=== PATIENT | female | born 1955 | race Caucasian/White ===

== ENCOUNTER → 2019-04-27 | Day surgery (SDC) | payer MEDICARE ==
[~2019-04-27] MED LIST: CARAFATE1 GM/10 ML PO; DOCUSATE SODIU100 MG PO; FENTANYL CITRATE/PF 100MCG/2 ML INJ ONE; FENTANYL1 EAC1 TOP; FLONASE; FLUTICASONE PRO60 ML; LIDOCAINE HCL 2% LOCAL INJ 5 ML SDV VIAL INJ ONE; LISINOPRIL10 MG PO; LYRICA75 MG; MIDAZOLAM HCL 2 MG/2 ML VIAL ONE; NORCO 10-325 T1 EACH; PROPOFOL IV EMULSION 10 MG/ML 20 ML VIAL ONE; TRAZODONE HCL50 MG PO; TRELEGY ELLIPTA; ZOFRAN8 MG; ZOLPIDEM
--- OUTSIDE RECORDS SUMMARY | 2019-04-27 11:29 | XMS REPORT ---
Author Author [facility] Address Unknown Phone Unavailable Care Team Providers Care Preparator Name Role Phone Celeste MULLEN Unavailable Unavailable Problems This patient has no known problems. Allergies, Adverse Reactions, Alerts This patient has no known allergies or adverse reactions. Medications This patient has no known medications. Results Test Description Test Time Test Comments Text Results Atomic Results Result Comments RIBS UNILAT W/CXR [facility] [address] [address] Patient Name: MARIA R LOAIZA MR #: [id number] : 1955 Age/Sex: 61/F Req #: [id number] [facility] Physician: Ordered by: TRINO MULLEN MD Report #: [id number] Location: [facility] Room/Bed: Procedure: DX/RIBS UNILAT W/CXR Exam Date: 04/16/17 Exam Time: 1645 REPORT STATUS: Signed PROCEDURE: X-RAY UNILATERAL RIBS WITH CHEST X-RAY COMPARISON: [facility], DX, THORACIC SPINE AP T LA, 04/11/2017, 17:39. INDICATIONS: FALL, RIGHT SIDE RIB PAIN FINDINGS: BONES: Displaced fracture of the posterior right sixth rib. SOFT TISSUES: Negative. OTHER: No pneumothorax. CONCLUSION: Displaced fracture of the posterior right sixth rib. No pneumothorax. Mason Pittman M.D. Dictated by: Mason Pittman M.D. on 04/16/2017 at 18:14 Electronically approved by: Mason Pittman M.D. on 04/16/2017 at 18:14 Dictated By: JAKE PITTMAN MD, MD 13 Transcribed By: ASHKAN on 04/16/171813 COPY TO: TRINO MULLEN MD SACRUM X-RAY [place] [address] Patient Name: MARIA R LOAIZA MR #: [id number] : 1955 Age/Sex: 61/F Req #: [id number] Adm Physician: Ordered by: TRINO MULLEN MD Report #: [id number] Location: [facility] Room/Bed: Procedure: [id number] DX/SACRUM X-RAY Exam Date: 04/11/17 Exam Time: 1739 REPORT STATUS: Signed PROCEDURE: SACRUM X-RAY TECHNIQUE: AP and lateral INDICATION: Back pain. COMPARISON: None. FINDINGS: Unremarkable sacrum. No fractures or dislocations. Unremarkable bilateral SI joints. Grade 1 anterolisthesis of L4 on L5 secondary to mild facet arthropathy. Moderate disc space narrowing at L5-S1 with moderate L5-S1 facet arthrosis. CONCLUSION: Unremarkable sacrum. Dictated by: Raúl Peña M.D. on 04/11/2017 at 18:35 Electronically approved by: Raúl Peña M.D. on 04/11/2017 at 18:35 Dictated By: RAÚL PEÑA MD 1835 Transcribed By: ASHKAN on 04/11/171834 COPY TO: TRINO MULLEN MD SP LUMBAR, COMPLETE MIN 4VW [place] [address] Patient Name: MARIA R LOAIZA MR #: [id number] : 1955 Age/Sex: 61/F Req #: [id number] Adm Physician: Ordered by: TRINO MULLEN MD Report #: [id number] Location: [facility] Room/Bed: Procedure: [id number] DX/SP LUMBAR, COMPLETE MIN 4VW Exam Date: 04/11/17 Exam Time: 1739 REPORT STATUS: Signed PROCEDURE: L-SPINE COMPLETE COMPARISON: None. INDICATIONS: LOWER BACK PAIN FINDINGS: There are 5 lumbar-type vertebral bodies. The vertebral bodies are well-aligned. Trace grade 1 anterolisthesis of L4 on L5 secondary to mild facet arthropathy. Moderate to severe facet arthropathy at L5-S1. There are no fractures, lytic or blastic lesions. Moderate disc space narrowing at L5-S1. Schmorl's node defect on the superior endplate of L3. The sacroiliac joints are unremarkable. Severe atherosclerotic calcifications. Partially visualized intertrochanteric screws in the left femur. CONCLUSION: Moderate degenerative changes in the lower lumbar spine with grade 1 anterolisthesis of L4 on L5 secondary to facet arthropathy and moderate disc space narrowing at L5-S1. Dictated by: Raúl Peña M.D. on 04/11/2017 at 18:34 Electronically approved by: Raúl Peña M.D. on 04/11/2017 at 18:34 Dictated By: RAÚL PEÑA MD 33 Transcribed By: ASHKAN on 04/11/171833 COPY TO: TRINO MULLEN MD THORACIC SPINE AP LA [place] [address] Patient Name: MARIA R LOAIZA MR #: [id number] : 1955 Age/Sex: 61/F Req #: [id number] Adm Physician: Ordered by: TRINO MULLEN MD Report #: [id number] Location: [facility] Room/Bed: Procedure: [id number] DX/THORACIC SPINE AP LA Exam Date: 04/11/17 Exam Time: 1739 REPORT STATUS: Signed PROCEDURE: X-RAY THORACIC SPINE, TWO VIEWS COMPARISON: None. INDICATIONS: BACK PAIN FINDINGS: No fractures or dislocations are seen of the thoracic spine. Vertebral body heights and disc spaces are maintained. Mild anterior disc osteophytes. CONCLUSION: Unremarkable thoracic spine. Dictated by: Raúl Peña M.D. on 04/11/2017 at 18:30 Electronically approved by: Raúl Peña M.D. on 04/11/2017 at 18:30 Dictated By: RAÚL PEÑA MD 29 Transcribed By: ASHKAN on 04/11/171829 COPY TO: TRINO MULLEN MD
[2019-04-27 14:53] VITALS: BP 137/88
== END | disposition home or self-care (01) ==
LOC: OR 11:26
PROVIDERS: ATTEND Internal Medicine Gastroenterology
DX: K29.50 Unspecified chronic gastritis without bleeding (principal); K22.2 Esophageal obstruction; K29.80 Duodenitis without bleeding; K44.9 Diaphragmatic hernia without obstruction or gangrene; B17.10 Acute hepatitis C without hepatic coma; Z71.3 Dietary counseling and surveillance; E66.9 Obesity, unspecified; G47.30 Sleep apnea, unspecified; I10 Essential (primary) hypertension; F41.9 Anxiety disorder, unspecified; F17.210 Nicotine dependence, cigarettes, uncomplicated; Z88.6 Allergy status to analgesic agent; Z68.34 Body mass index [BMI] 34.0-34.9, adult
CPT/HCPCS: 43239; 88305; 88312; 93005; J2001; J2250; J2704; J3010

== ENCOUNTER 2020-04-08 19:32 | Inpatient (IN) | payer MEDICARE, OTHER ==
[~2020-04-08] VITALS: Ht 170.2 cm; Wt 85.5 kg
[~2020-04-08 19:32] MED LIST changes: -FENTANYL CITRATE/PF 100MCG/2 ML INJ ONE; -LIDOCAINE HCL 2% LOCAL INJ 5 ML SDV VIAL INJ ONE; -MIDAZOLAM HCL 2 MG/2 ML VIAL ONE; -NORCO 10-325 T1 EACH; +NORCO 10-325 T1 EACH PO; -PROPOFOL IV EMULSION 10 MG/ML 20 ML VIAL ONE; -ZOLPIDEM; +ZOLPIDEM PO
--- NOTE | 2020-04-08 19:39 | Emergency Department Note ---
History of Present Illnes History of Present Illness History of Present Illness This is a 64 year old female presents the ED after being discharged from [facility] for blood clot in the abdomen. Patient seen at bedside ill appearing. Historian: Patient, Family Member Onset (how long ago): day(s) Radiation: Reports abdomen Severity: moderate Onset quality: gradual Duration (how long): day(s) (4) Timing of current episode: constant Progression: worsening Context: Reports recent illness, Reports recent immobilization Exacerbating factors: eating Associated symptoms: Reports fever/chills, Reports malaise, Reports nausea/vomiting Previous service: tests performed, re-evaluation Past Medical/Family History Physician Review I have reviewed the patient's past medical and family history. Any updates have been documented here. Past Medical History Recent Fever: No Clinical Suspicion of Infectio: Yes New/Unexplained Change in Ment: No Other Medical History: CHRONIC BACK PAIN, FOOT, ANXIETY, DEPRESSION, Other Surgery: C-SECTIONS X2 SKIN GRAFTS Social History Smoking Cessation: Never Smoker Alcohol Use: None Any Illegal Drug Use: No Other Last Tetanus: OOD Review of Systems Review of Systems Constitutional: Reports no symptoms EENTM: Reports no symptoms Cardiovascular: Reports no symptoms Respiratory: Reports no symptoms Gastrointestinal: Reports abdominal pain, Reports diarrhea Genitourinary: Reports no symptoms Musculoskeletal: Reports no symptoms Integumentary: Reports no symptoms Neurological: Reports no symptoms Psychological: Reports no symptoms Endocrine: Reports no symptoms Hematological/Lymphatic: Reports no symptoms Physical Exam Related Data Allergies: Coded Allergies: aspirin (Verified Allergy, Intermediate, VOMITING, 04/19/17) oxycodone (Verified Allergy, Intermediate, VOMITING, 04/19/17) pentazocine (Verified Allergy, Intermediate, VOMITING, 04/19/17) Triage Vital Signs Vital Signs Date Time Temp Pulse Resp B/P (MAP) Pulse Ox O2 Delivery O2 Flow Rate FiO2 04/08/20 20:00 98.2 86 18 154/85 98 Room Air Vital signs reviewed: Yes Physical Exam CONSTITUTIONAL Constitutional: Present morbidly obese, Present diaphoretic, Present ill appearing HENT HENT: Present normocephalic, Present atraumatic, Present oropharynx clear/moist, Present nose normal HENT L/R: Present left ext ear normal, Present right ext ear normal EYES Eyes: Reports PERRL, Reports conjunctivae normal NECK Neck: Present ROM normal PULMONARY Pulmonary: Present effort normal, Present breath sounds normal CARDIOVASCULAR Cardiovascular: Present regular rhythm, Present heart sounds normal, Present capillary refill normal, Present normal rate GASTROINTESTINAL Abdominal: Present soft, Present distension, Present tender GENITOURINARY Genitourinary: Present exam deferred SKIN Skin: Present warm, Present dry MUSCULOSKELETAL Musculoskeletal: Present ROM normal NEUROLOGICAL Neurological: Present alert, Present oriented x 3, Present no gross motor or sensory deficits PSYCHOLOGICAL Psychological: Present mood/affect normal, Present judgement normal Results Laboratory Lab results reviewed: Yes Laboratory comments Laboratory Tests Test 04/08/20 20:40 04/08/20 20:08 White Blood Count 18.33 x10e3/uL (4.8-10.8) Red Blood Count 5.01 x10e6/uL (3.6-5.1) Hemoglobin 14.1 g/dL (12.0-16.0) Hematocrit 41.4 % (34.2-44.1) Mean Corpuscular Volume 82.6 fL (81-99) Mean Corpuscular Hemoglobin 28.1 pg (28-32) Mean Corpuscular Hemoglobin Concent 34.1 g/dL (31-35) Red Cell Distribution Width 13.4 % (11.7-14.4) Platelet Count 306 x10e3/uL (140-360) Neutrophils (%) (Auto) 74.2 % (38.7-80.0) Lymphocytes (%) (Auto) 15.5 % (18.0-39.1) Monocytes (%) (Auto) 8.5 % (4.4-11.3) Eosinophils (%) (Auto) 0.3 % (0.0-6.0) Basophils (%) (Auto) 0.2 % (0.0-1.0) Neutrophils # (Auto) 13.6 (2.1-6.9) Lymphocytes # (Auto) 2.8 (1.0-3.2) Monocytes # (Auto) 1.6 (0.2-0.8) Eosinophils # (Auto) 0.1 (0.0-0.4) Basophils # (Auto) 0.0 (0.0-0.1) Absolute Immature Granulocyte (auto 0.24 x10e3/uL (0-0.1) Sodium Level 136 mmol/L (136-145) Potassium Level 3.4 mmol/L (3.5-5.1) Chloride Level 100 mmol/L (98-107) Carbon Dioxide Level 23 mmol/L (22-29) Anion Gap 16.4 mmol/L (8-16) Blood Urea Nitrogen 19 mg/dL (7-26) Creatinine 0.90 mg/dL (0.57-1.11) Estimat Glomerular Filtration Rate > 60 ML/MIN (60-) BUN/Creatinine Ratio 21 (6-25) Glucose Level 107 mg/dL (74-118) Calcium Level 8.2 mg/dL (8.4-10.2) Total Bilirubin 0.6 mg/dL (0.2-1.2) Aspartate Amino Transf (AST/SGOT) 18 IU/L (5-34) Alanine Aminotransferase (ALT/SGPT) 17 IU/L (0-55) Alkaline Phosphatase 88 IU/L (40-150) Total Protein 7.1 g/dL (6.5-8.1) Albumin 3.9 g/dL (3.5-5.0) Globulin 3.2 g/dL (2.3-3.5) Albumin/Globulin Ratio 1.2 (0.8-2.0) Urine Color Yellow (YELLOW) Urine Clarity Sl cloudy (CLEAR) Urine pH 6 (5 - 7) Urine Specific [place] 1.010 (1.010-1.025) Urine Protein Negative (NEGATIVE) Urine Glucose (UA) Negative (NEGATIVE) Urine Ketones Negative (NEGATIVE) Urine Blood Trace (NEGATIVE) Urine Nitrite Negative (NEGATIVE) Urine Bilirubin Negative (NEGATIVE) Urine Urobilinogen 0.2 mg/dL (0.2 - 1) Urine Leukocyte Esterase Trace (NEGATIVE) Urine RBC 0-5 /HPF (0-5) Urine WBC 0-5 /HPF (0-5) Urine Epithelial Cells Moderate /LPF (NONE) Urine Bacteria Moderate /HPF (NONE) Urine Opiates Screen Positive (NEGATIVE) Urine Methadone Screen Negative (NEGATIVE) Urine Barbiturates Screen Negative (NEGATIVE) Urine Phencyclidine Screen Negative (NEGATIVE) Urine Amphetamines Screen Negative (NEGATIVE) Urine Methamphetamines Screen Negative (NEGATIVE) Urine Benzodiazepines Screen Negative (NEGATIVE) Urine Cocaine Screen Negative (NEGATIVE) Urine Cannabinoids Screen Negative (NEGATIVE) Imaging Imaging results reviewed: Yes Impressions [facility] [address] [id number] Patient Name: MARIA R LOAIZA MR #: [id number] : 1955 Age/Sex: 64/F [facility] #: [id number] Req #: [id number] [facility] Physician: Ordered by: MARILIA GOMEZ DO Report #: [id number] Location: Room/Bed: Procedure: CT/CTA ABD/PELVIS Exam Date: 04/08/20 Exam Time: 2148 REPORT STATUS: Signed EXAM: CTA of the Abdominal Aorta and Pelvic Arteries WITH Contrast INDICATION: ^abd pain ^[id number] ^2148 COMPARISON: None. TECHNIQUE: Multi-detector CT technology was employed. CTA of the abdomen and pelvis was performed after the administration of IV contrast. IV CONTRAST: 100 mL of Isovue-370 ORAL CONTRAST: None COMPLICATIONS: None RADIATION DOSE: Total DLP: 1593.96 mGy*cm Estimated effective dose: (DLP x 0.015 x size factor) mSv CTDIvol has been reviewed. It is below the limits set by the Radiation Protocol Committee (RPC). For optimization of anatomic evaluation, multiplanar reconstruction, maximum intensity projections, and advanced 3-D off-line postprocessing were performed on a dedicated stand-alone workstation under the direct supervision of the interpreting physician. FINDINGS: Potential study limitations: None. The abdominal aorta is normal in course, caliber, and contour. There is no acute aortic pathology. No abdominal aortic aneurysm. Normal abdominal aortic measurements. Aortic plaques: Moderate. The celiac axis, SMA, and MIA are patent. There are single renal arteries bilaterally, both of which appear patent. However, there is moderate to severe calcification at the ostium of the left renal artery. The pelvic arteries are normal in caliber and contour. There are moderate to severe atherosclerotic changes of the pelvic arteries. LOWER CHEST: Posterior left base cyst/pneumatoceles. Punctate subpleural left base calcified granuloma.. ABDOMEN: Cholecystectomy. Mild intrahepatic biliary dilatation. Common bile duct is distended up to 1.8 cm. Hepatomegaly. No hepatic mass. Splenomegaly. Pancreatic ductal dilatation, measuring up to 9 mm proximally. Mild pancreatic atrophy. Adrenal glands are unremarkable. No hydronephrosis. No renal mass. Bowel loops are unremarkable. No evidence of bowel obstruction. Contrast from prior study is seen within colon. Wall thickening and change in caliber of colon at splenic flexure (series 6, image 32). Appendix is not visualized. There is no significant retroperitoneal adenopathy. Few nonspecific retroperitoneal lymph nodes measuring up to 1 cm (series 6, image 72). 1.2 cm pericaval lymph node No free fluid or free air within the abdomen or pelvis. BONES: Prior left femoral head pin fixation. Left iliac sclerotic focus (series 6, image 125). Mild age-indeterminate healthy and L4 superior to compression deformity, likely degenerative. Degenerative changes, most notable at L5-S1. Small bowel containing ventral hernia. IMPRESSION: 1. No acute abdominal aortic pathology. Moderate aortoiliac atherosclerotic disease. 2. Biliary dilatation, greater than expected post cholecystectomy reservoir effect. There is also pancreatic ductal dilatation. Ampullary lesion cannot be excluded. Recommend GI consult and if indicated correlation with ERCP or endoscopic examination. 3. Mild wall thickening and abrupt change caliber of colon in splenic flexure. Underlying colonic lesion cannot be excluded. 4. Few indeterminate prominent retroperitoneal lymph nodes. Attention on follow-up examination. 5. Left iliac sclerotic focus, could present a bone island. This can be confirmed with bone scan. Signed by: Dr. Lisandro Whalen MD on 04/08/2020 11:02 PM Dictated By: LISANDRO WHALEN MD 01 Transcribed By: NELY on 04/08/202301 COPY TO: MARILIA GOMEZ DO~ Assessment & Plan Medical Decision Making MDM diff dx : choledochelithiasis, cholangitis, uti, colitis, mesenteric ischemia Assessment & Plan Final Impression: (1) Abdominal pain (2) UTI (urinary tract infection) Depart Disposition: ADMITTED Home Meds Reported Medications Tizanidine Hcl (TIZANIDINE HCL) 4 Mg Tablet, 4 MG PO Q8H 9/6/20 Fluticasone/Salmeterol (ADVAIR HFA 115-21 MCG INHALER) Unknown Strength Hfa.aer.ad 04/09/20 Lisinopril (LISINOPRIL) 10 Mg Tablet, 10 MG PO DAILY, #30 TAB 04/27/19 [Zopidem] No Conflict Check, 5 MG PO HS PRN for INSOMNIA 04/27/19 Trazodone Hcl (TRAZODONE HCL) 50 Mg Tablet, 50 MG PO DAILY PRN for INSOMNIA, #30 TAB 04/27/19 Sucralfate (CARAFATE) 1 Gm/10 Ml Oral.susp, 1 GM PO UD, ML 04/27/19 [Trelegy Ellipta] Unknown Strength No Conflict Check 04/27/19 [Flonase] Unknown Strength No Conflict Check 04/27/19 Hydrocodone Bit/Acetaminophen (NORCO 10-325 TABLET) 1 Each Tablet, 1 TAB PO Q6H PRN for MODERATE PAIN (4-6) 04/27/19 Fentanyl (FENTANYL) 1 Each Patch.td72, 50 MCG TOP Q72H 04/27/19 Pregabalin (LYRICA) 75 Mg Cap, 100 MG DAILY, #30 CAP 04/27/19 Discontinued Reported Medications Ondansetron Hcl (ZOFRAN) 8 Mg Tablet, 4 04/27/19 Docusate Sodium (DOCUSATE SODIUM) 100 Mg Capsule, 100 MG PO, CAP 04/27/19 Fluticasone Propionate (FLUTICASONE PROPIONATE) 60 Ml Lotion 04/27/19 Lisinopril (LISINOPRIL) 10 Mg Tablet, 40 MG PO DAILY, #30 TAB 04/27/19 MARILIA GOMEZ DO Apr 08, 2020 19:38
[2020-04-08] MEDS ORDERED: SODIUM CHLORIDE 0.9% 1000ML 1,000 ML IV STA (19:59)
[2020-04-08] MEDS ORDERED: ONDANSETRON HCL INJ 2MG/ML 2ML 2 MG/ML VIAL IV STA (19:59)
[2020-04-08] MEDS ORDERED: MORPHINE SULFATE INJ 4 MG/ML INJ 1ML IV PRN (20:00)
--- OUTSIDE RECORDS SUMMARY | 2020-04-08 20:26 | XMS REPORT | Continuity of Care Document ---
Author Author [facility] t Organization [facility] Address [address] [place] [address] Phone Unavailable Care Team Providers Care Customer Acquisition Specialist Name Role Phone Celeste JERONIMO TRINO Attphys Unavailable Payers Payer Name Policy Type Policy Number Effective Date Expiration Date S ource Problems This patient has no known problems. Allergies, Adverse Reactions, Alerts Allergy Name Allergy Type Status Severity Reaction(s) Onset Date Inacti ve Date Treating Clinician Comments Source pentazocine DA Active U 2015-11-29 00:00:00 [facility] Medications This patient has no known medications. Procedures This patient has no known procedures. Results Test Description Test Time Test Comments Results Result Comments Source - CT ABD PELVIS W WO CONT 2020-04-08 16:59:00 Name: MARIA R LOAIZA [facility] : 1955 Age/S: 64 / F [address] [facility] Unit #: [id number] Loc: [place] [address] Phys: Morelia Trujillo MD Acct: [id number] Dis Date: Status: ADM IN PHONE #: [phone] Exam Date: 04/08/2020 1630 FAX #: [phone] Reason: Abdominal pain and diarrhea EXAMS: CPT CODE: [id number] CT ABD PELVIS W WO CONT 23097 REASON FOR EXAM: Abdominal pain and diarrhea EXAM ORDER DATE: 04/08/2020 11:54 AM Ordering: Morelia Trujillo MD Attending:Maryuri Esquivel MD Location:[facility] PROCEDURE: - CT ABD PELVIS W WO CONT COMPARISON: FINDINGS: CT images of the abdomen and pelvis were obtained 1st without and follow with IV and without oral contrast at 5mm. Dose modulation, iterative reconstruction, and/or weight based adjustment of the MA/KV was utilized to reduce the radiation dose to as low as reasonably achievable. Intravenous contrast: 100cc of Omnipaque 370. The liver, spleen, pancreas are grossly within normal limits. The patient is status post cholecystectomy The kidneys are within normal limits. The urinary bladder is unremarkable. The small bowel, and stomach are within normal limits without evidence of obstruction. The appendix was not seen No evidence of free air or free fluid. The uterus is unremarkable. IMPRESSION: Possible small thrombus versus artifact in the middle third segment of the SMA. Nonspecific minimal thickening of the transverse colonic wall near the splenic flexure. Recommend additional correlation with CT angiogram of the mesenteric artery to rule out SMA occlusion. at 9361 Reported and signed by: Wes Marina M.D. PAGE 1 Signed Report (CONTINUED) Name: MARIA R LOAIZA [facility] : 1955 Age/S: 64 / F [address] [facility] Unit #: [id number] Loc: [place] [address] Phys: Morelia Trujillo MD Acct: [id number] Dis Date: Status: ADM IN PHONE #: [phone] Exam Date: 04/08/2020 1630 FAX #: [phone] Reason: Abdominal pain and diarrhea EXAMS: CPT CODE: [id number] CT ABD PELVIS W WO CONT 34497 <Continued> CC: Morelia Trujillo MD; Félix Jeronimo MD; Maryuri Esquivel MD Technologist:July KLINE(R); SAMARA Gomez CTDI: DLP: Trnscb Date/Time: 04/08/2020 (165) [email or web address] Orig Print D/T: S: 04/08/2020 (3537) PAGE 2 Signed Report COVID 19 INHOUSE AG 2020-04-08 02:40:00 Test Item COVID 19 INHOUSE AG (test code = [id number]) NEGATIVE - XR CHEST 1 [id number] 00:31:00 Name: MARIA R LOAIZA [facility] : 1955 Age/S:64 /F [address] [facility] Unit#:[id number] Loc: [place] [address] Phys: June Hearn MD Dis Date: PHONE #: [phone] Status: PRE ER FAX #: [phone] Exam Date: 04/08/2020 Reason: CHEST PAIN EXAMS: CPT CODE: [id number] XR CHEST 1 V 22680 AFTER HOURS SERVICE ON: 04/08/2020 12:30 AM AP Portable Chest Location Code M12 HISTORY: CHEST PAIN FINDINGS: There are no infiltrates. There are no pleural effusions. There is no pneumothorax. Cardiac silhouette and mediastinum appear within normal limits. IMPRESSION: No active pulmonary findings. at 0031 Reported and signed by: Jens Oneil M.D. CC: Félix Jeronimo MD Technologist: DEAN AGUSTIN RT(R),RDMS,CT Trnscrpt Data: 04/08/2020 (003) [email or web address] Orig Print D/T: S: 04/08/2020 (0034) PAGE 1 Signed Report URINALYSIS [id number] 00:08:00* Test Item Value Reference Range Interpretation Comments UA COLOR (test code = COLU) YELLOW YELLOW UA APPEARANCE (test code = APPU) HAZY CLEAR A UA GLUCOSE DIPSTICK (test code = DGLUU) norm mg/dL NEGATIVE UA BILIRUBIN DIPSTICK (test code = BILU) NEGATIVE mg/dL NEGATIVE UA KETONE DIPSTICK (test code = KETU) 5 (Trace) mg/dL NEGATIVE A UA SPECIFIC GRAVITY (test code = SGU) 1.015 1.001-1.035 UA BLOOD DIPSTICK (test code = THELMA) 10 (Trace) Babar/uL NEGATIVE A UA PH DIPSTICK (test code = MELISSA) 6.0 5.0-8.0 UA PROTEIN DIPSTICK (test code = PROU) 30 (1+) mg/dL Neg-15 A UA UROBILINIOGEN DIPSTICK (test code = URO) 1 mg/dL 0.0-0.2 A UA NITRITE DIPSTICK (test code = SHALA) NEGATIVE NEGATIVE UA LEUKOCYTE ESTERASE DIPSTICK (test code = LEUU) 100 Katarina/uL (1+) u L NEGATIVE A UA WBC (test code = WBCU) 6-10 per HPF 0-5 A UA RBC (test code = RBCU) 0-3 per HPF 0-5 UA EPITHELIAL CELLS (test code = EPIU) Few (2-5/hpf) per HPF Few UA BACTERIA (test code = BACU) LOADED per HPF NONE A Urine Source? Clean CatchDRUGS OF ABUSE SCREEN [id number] 00:08:00* Test Item Value Reference Range Interpretation Comments URN COCAINE (test code = COCAURN) NEGATIVE NEGATIVE URN CANNABINOIDS (test code = CANNABURN) NEGATIVE NEGATIVE URN AMPHETAMINE (test code = AMPHETURN) NEGATIVE NEGATIVE URN BARBITURATE (test code = BARBITURN) NEGATIVE NEGATIVE URN BENZODIAZEPINE (test code = BENZOURN) NEGATIVE NEGATIVE URN OPIATES (test code = OPIATURN) NEGATIVE NEGATIVE URN PHENCYCLIDINE (PCP) (test code = PHENCURN) NEGATIVE NEGATIV E Urine Source? Clean CatchURINALYSIS [id number] 00:00:00* Test Item Value Reference Range Interpretation Comments UA COLOR (test code = COLU) YELLOW YELLOW UA APPEARANCE (test code = APPU) HAZY CLEAR A UA GLUCOSE DIPSTICK (test code = DGLUU) norm mg/dL NEGATIVE UA BILIRUBIN DIPSTICK (test code = BILU) NEGATIVE mg/dL NEGATIVE UA KETONE DIPSTICK (test code = KETU) 5 (Trace) mg/dL NEGATIVE A UA SPECIFIC GRAVITY (test code = SGU) 1.015 1.001-1.035 UA BLOOD DIPSTICK (test code = THELMA) 10 (Trace) Babar/uL NEGATIVE A UA PH DIPSTICK (test code = MELISSA) 6.0 5.0-8.0 UA PROTEIN DIPSTICK (test code = PROU) 30 (1+) mg/dL Neg-15 A UA UROBILINIOGEN DIPSTICK (test code = URO) 1 mg/dL 0.0-0.2 A UA NITRITE DIPSTICK (test code = SHALA) NEGATIVE NEGATIVE UA LEUKOCYTE ESTERASE DIPSTICK (test code = LEUU) 100 Katarina/uL (1+) u L NEGATIVE A UA WBC (test code = WBCU) 6-10 per HPF 0-5 A UA RBC (test code = RBCU) 0-3 per HPF 0-5 UA EPITHELIAL CELLS (test code = EPIU) Few (2-5/hpf) per HPF Few UA BACTERIA (test code = BACU) LOADED per HPF NONE A Urine Source? Clean CatchDRUGS OF ABUSE SCREEN [id number] 00:00:00* Test Item Value Reference Range Interpretation Comments URN COCAINE (test code = COCAURN) NEGATIVE URN CANNABINOIDS (test code = CANNABURN) NEGATIVE URN AMPHETAMINE (test code = AMPHETURN) NEGATIVE URN BARBITURATE (test code = BARBITURN) NEGATIVE URN BENZODIAZEPINE (test code = BENZOURN) NEGATIVE URN OPIATES (test code = OPIATURN) NEGATIVE URN PHENCYCLIDINE (PCP) (test code = PHENCURN) NEGATIV E Urine Source? Clean CatchURINALYSIS [id number] 23:57:00* Test Item Value Reference Range Interpretation Comments UA COLOR (test code = COLU) YELLOW YELLOW UA APPEARANCE (test code = APPU) HAZY CLEAR A UA GLUCOSE DIPSTICK (test code = DGLUU) norm mg/dL NEGATIVE UA BILIRUBIN DIPSTICK (test code = BILU) NEGATIVE mg/dL NEGATIVE UA KETONE DIPSTICK (test code = KETU) 5 (Trace) mg/dL NEGATIVE A UA SPECIFIC GRAVITY (test code = SGU) 1.015 1.001-1.035 UA BLOOD DIPSTICK (test code = THELMA) 10 (Trace) Babar/uL NEGATIVE A UA PH DIPSTICK (test code = MELISSA) 6.0 5.0-8.0 UA PROTEIN DIPSTICK (test code = PROU) 30 (1+) mg/dL Neg-15 A UA UROBILINIOGEN DIPSTICK (test code = URO) 1 mg/dL 0.0-0.2 A UA NITRITE DIPSTICK (test code = SHALA) NEGATIVE NEGATIVE UA LEUKOCYTE ESTERASE DIPSTICK (test code = LEUU) 100 Katarina/uL (1+) u L NEGATIVE A UA WBC (test code = WBCU) per HPF 0-5 UA RBC (test code = RBCU) per HPF 0-5 UA EPITHELIAL CELLS (test code = EPIU) per HPF Few UA BACTERIA (test code = BACU) per HPF NONE Urine Source? Clean CatchDRUGS OF ABUSE SCREEN [id number] 23:57:00* Test Item Value Reference Range Interpretation Comments URN COCAINE (test code = COCAURN) NEGATIVE URN CANNABINOIDS (test code = CANNABURN) NEGATIVE URN AMPHETAMINE (test code = AMPHETURN) NEGATIVE URN BARBITURATE (test code = BARBITURN) NEGATIVE URN BENZODIAZEPINE (test code = BENZOURN) NEGATIVE URN OPIATES (test code = OPIATURN) NEGATIVE URN PHENCYCLIDINE (PCP) (test code = PHENCURN) NEGATIV E Urine Source? Clean CatchBASIC METABOLIC [id number] 23:53:00* Test Item Value Reference Range Interpretation Comments SODIUM (test code = NA) 132 mmol/L 136-145 L POTASSIUM (test code = K) 2.9 mmol/L 3.5-5.1 L Re sults called to [id number] by DONAL 04/07/20 4968Critical results verified and read back by Nurse? Y CHLORIDE (test code = CL) 95 mmol/L 101-109 L CARBON DIOXIDE (test code = CO2) 23.1 mmol/L 21-32 N ANION GAP (test code = GAP) 17 mmol/L 10-20 N GLUCOSE (test code = GLU) 140 mg/dL 74-106 H BLOOD UREA NITROGEN (test code = BUN) 40 mg/dL 3-21 H GLOMERULAR FILTRATION RATE (test code = GFR) 44 mL/min >=60 Estimated GFR by using Modified MDRD formula.Chronic kidney disease is defined as either kidney damageor GFR <60 mL/min/1.73 m2 for >3 months. CREATININE (test code = CREAT) 1.24 mg/dL 0.55-1.3 N BUN/CREATININE RATIO (test code = BUN/CREA) 32.3 10-20 H CALCIUM (test code = CA) 9.0 mg/dL 8.4-10.2 N HEPATIC FUNCTION [id number] 23:53:00* Test Item Value Reference Range Interpretation Comments TOTAL PROTEIN (test code = PROT) 8.2 g/dL 6.5-8.4 N ALBUMIN (test code = ALB) 3.4 g/dL 3.4-4.8 N GLOBULIN (test code = GLOB) 4.8 G/DL 1-10 N ALBUMIN/GLOBULIN RATIO (test code = A/G) 0.71 RATIO 0.75-1.50 L BILIRUBIN TOTAL (test code = BILT) 0.90 mg/dL 0.0-1.0 N BILIRUBIN DIRECT (test code = BILD) 0.30 mg/dL 0.0-0.30 N SGOT/AST (test code = AST) 25 U/L 6-32 N SGPT/ALT (test code = ALT) 24 U/L 12-78 N N ote: Change in REFERENCE RANGE due to new reagent method. ALKALINE PHOSPHATASE TOTAL (test code = ALKP) 107 U/L 38-126 N [id number] 23:53:00* Test Item Value Reference Range Interpretation Comments LIPASE (test code = LIP) 226 U/L 128-270 N [id number] 23:53:00* Test Item Value Reference Range Interpretation Comments TROPONIN-I (test code = TROPI) <0.015 ng/mL 0.00-0.056 N BASIC METABOLIC [id number] 23:49:00* Test Item Value Reference Range Interpretation Comments SODIUM (test code = NA) 132 mmol/L 136-145 L POTASSIUM (test code = K) 2.9 mmol/L 3.5-5.1 L Re sults called to [id number] by DONAL 04/07/20 0107Critical results verified and read back by Nurse? Y CHLORIDE (test code = CL) 95 mmol/L 101-109 L CARBON DIOXIDE (test code = CO2) 23.1 mmol/L 21-32 N ANION GAP (test code = GAP) 17 mmol/L 10-20 N GLUCOSE (test code = GLU) 140 mg/dL 74-106 H BLOOD UREA NITROGEN (test code = BUN) 40 mg/dL 3-21 H GLOMERULAR FILTRATION RATE (test code = GFR) 44 mL/min >=60 Estimated GFR by using Modified MDRD formula.Chronic kidney disease is defined as either kidney damageor GFR <60 mL/min/1.73 m2 for >3 months. CREATININE (test code = CREAT) 1.24 mg/dL 0.55-1.3 N BUN/CREATININE RATIO (test code = BUN/CREA) 32.3 10-20 H CALCIUM (test code = CA) 9.0 mg/dL 8.4-10.2 N HEPATIC FUNCTION [id number] 23:49:00* Test Item Value Reference Range Interpretation Comments TOTAL PROTEIN (test code = PROT) gram/dL 6.4-8.2 ALBUMIN (test code = ALB) g/dL 3.4-5.0 GLOBULIN (test code = GLOB) g/dL 2.7-4.2 ALBUMIN/GLOBULIN RATIO (test code = A/G) 0.75-1.50 BILIRUBIN TOTAL (test code = BILT) mg/dL 0.2-1.2 BILIRUBIN DIRECT (test code = BILD) mg/dL 0.0-0.20 SGOT/AST (test code = AST) IUnit/L 15-37 SGPT/ALT (test code = ALT) U/L 10-69 ALKALINE PHOSPHATASE TOTAL (test code = ALKP) IUnit/L 45-117 [id number] 23:49:00* Test Item Value Reference Range Interpretation Comments LIPASE (test code = LIP) Unit/L 144-286 [id number] 23:49:00* Test Item Value Reference Range Interpretation Comments TROPONIN-I (test code = TROPI) ng/mL 0-0.045 CBC W/O [id number] 23:37:00* Test Item Value Reference Range Interpretation Comments WHITE BLOOD CELL (test code = WBC) 25.0 K/mm3 4.5-12.5 H RED BLOOD CELL (test code = RBC) 5.54 mill/mm3 3.7-5.2 H HEMOGLOBIN (test code = HGB) 15.6 gram/dL 11.5-15.5 H HEMATOCRIT (test code = HCT) 44.7 % 36.0-46.0 N MEAN CELL VOLUME (test code = MCV) 80.7 fL 80-98 N MEAN CELL HGB (test code = MCH) 28.2 picogram 27.0-33.0 N MEAN CELL HGB CONCETRATION (test code = MCHC) 34.9 gram/dL 33.0-36. 0 N RED CELL DISTRIBUTION WIDTH (test code = RDW) 12.9 % 11.6-16. 2 N RED CELL DISTRIBUTION WIDTH SD (test code = RDW-SD) 38.3 fL 37 .0-51.0 N PLATELET COUNT (test code = PLT) 370 K/mm3 150-450 N MEAN PLATELET VOLUME (test code = MPV) 8.9 fL 6.7-11.0 N RIBS UNILAT W/CXR [facility] [address] [address] Patient Name: MARIA R LOAIZA MR #: [id number] : 1955 Age/Sex: 61/F Req #: [id number] Adm Physician: Ordered by: TRINO JERONIMO MD Report #: [id number] Location: [facility] Room/Bed: Procedure: [id number] DX/RIBS UNILAT W/CXR [place] m Date: 04/16/17 Exam Time: 1645 REPORT STATUS: Signed PROCEDURE: X-RAY UNILATERAL RIBS WITH CHEST X-RAY COMPARISON: [facility], DX, THORACIC SPINE AP T LA, 04/11/2017, 17:39. INDICATIONS: FALL, RIGHT SIDE RIB PAIN FINDINGS: BONES: Displaced fracture of the posterior right sixth rib. SOFT TISSUES: Negative. OTHER: No pneumothorax. CONCLUSION: Displaced fracture of the posterior right sixth rib. No pneumothorax. Mason tirado M.D. Dictated by: Mason Pittman M.D. on 04/16/2017 at 18:14 Electronically approved by: Mason Pittman M.D. on 04/16/2017 at 18:14 Dictated By: JAKE PITTMAN MD, MD 13 Transcribed By: ASHKAN on 04/16/171813 COPY TO: TRINO JERONIMO MD SACRUM X-RAY [facility] [address] [address] Patient Name: MARIA R LOAIZA MR #: [id number] : 1955 Age/Sex: 61/F Req #: [id number] Adm Physician: Ordered by: TRINO JERONIMO MD Report #: [id number] Location: [facility] Room/Bed: Procedure: [id number] DX/SACRUM X-RAY Exam Evan e: 04/11/17 Exam Time: 1739 REPORT STATUS: Sign ed PROCEDURE: SACRUM X-RAY TECHNIQUE: AP and lateral INDICATION: Ba ck pain. COMPARISON: None. FINDINGS: Unremarkable sacrum. No fractur es or dislocations. Unremarkable bilateral SI joints. Grade 1 anterolist hesis of L4 on L5 secondary to mild facet arthropathy. Moderate disc space narrowing at L5-S1 with moderate L5-S1 facet arthrosis. CONCLUSION: Unremarkable sacrum. Dictated by: Ronald Peña M.D. on 04/11/2017 at 18:35 Electronically approved by: Ronald Peña M.D. on 04/11/2017 at 18:35 Dictated By: RONALD PEÑA MD 34 Transcribed By: ASHKAN on 04/11/171834 COPY TO: QIANA JERONIMO MD SP LUMBAR, COMPLETE MIN 4VW [address], [place] [address] Patient Name: MARIA R LOAIZA MR #: [id number] : 1955 Age/Sex: 61/F Req #: [id number] [facility] Physician: Ordered by: TRINO JERONIMO MD Report #: [id number] Location: [facility] Room/Bed: Procedure: [id number] DX/SP LUMBAR, COMPLETE AR N 4VW Exam Date: 04/11/17 Exam Time: 1739 REPO RT STATUS: Signed PROCEDURE: L-SPINE COMPLETE COMPARISON: None. INDICATIONS: LOWER BACK PAIN FINDINGS: There are 5 lumbar-type v ertebral bodies. The vertebral bodies are well-aligned. Trace grade 1 anterol isthesis of L4 on L5 secondary to mild facet arthropathy. Moderate to severe facet arthropathy at L5-S1. There are no fractures, lytic or blastic lesions. Moderate disc space narrowing at L5-S1. Schmorl's node defect on the superior endplate of L3. The sacroiliac joints are unremarkable. Severe athero sclerotic calcifications. Partially visualized intertrochanteric screws in th e left femur. CONCLUSION: Moderate degenerative changes in the lower lumbar spine with grade 1 anterolisthesis of L4 on L5 secondary to facet arth ropathy and moderate disc space narrowing at L5-S1. Dictated by: Ronald Peña M.D. on 04/11/2017 at 18:34 Electronically approved by: Liliane Banda on 04/11/2017 at 18:34 Dictated By: RONALD PEÑA MD Electronically S igned By: RONALD PEÑA MD on 04/11/171833 Transcribed By: ASHKAN on 04/11/171833 COPY TO: TRINO JERONIMO MD THORACIC SPINE AP LA [facility] [address] [place] [address] Patient Name: MARI AR LOAIZA MR #: [id number] : 1955 Age/Sex: 61/F Req #: [id number] Adm Physician: Ordered by: TRINO JERONIMO MD Report #: [id number] Location: [facility] Room/Bed: Procedure: [id number] DX/THORACIC SPINE AP LA Exam Date: 04/11/17 Exam Time: 1739 REPORT STAT US: Signed PROCEDURE: X-RAY THORACIC SPINE, TWO VIEWS COMPARISON: N one. INDICATIONS: BACK PAIN FINDINGS: No fractures or dis locations are seen of the thoracic spine. Vertebral body heights and disc sp aces are maintained. Mild anterior disc osteophytes. CONCLUSION: Unremarkable thoracic spine. Dictated by: Ronald Peña M.D. on 04/11/2017 at 18:30 Electronically approved by: Ronald Peña M.D. on 04/11/2017 at 18:30 Dictated By: RONALD PEÑA MD 183 Transcribed By: ASHKAN on 04/11/17 183 COPY TO: ALLIE JERONIMO MD
[2020-04-08 20:36] LABS: BILIRUBIN,URINE NEGATIVE (NEGATIVE); CLARITY,URINE SL CLOUDY (CLEAR); COLOR,URINE YELLOW (YELLOW); KETONES,URINE NEGATIVE (NEGATIVE); LEUKOCYTE ESTERASE ,URINE TRACE (NEGATIVE); NITRITE,URINE NEGATIVE (NEGATIVE); PROTEIN,URINE DIPSTICK NEGATIVE (NEGATIVE); URINE UROBILINOGEN 0.2 mg/dL (0.2 - 1)
[2020-04-08 20:41] LABS: AMPHETAMINES SCREEN,URINE NEGATIVE (NEGATIVE); BENZODIAZEPINES SCREEN,URINE NEGATIVE (NEGATIVE); PHENCYCLIDINE SCREEN,URINE NEGATIVE (NEGATIVE)
[2020-04-08 20:49] LABS: BACTERIA,URINE MODERATE /HPF; EPITHELIAL CELLS,URINE MODERATE /LPF; RBC,URINE 0-5 /HPF (0-5); WBC,URINE (MAN) 0-5 /HPF (0-5)
[2020-04-08 21:00] LABS: BASOPHILS % 0.2 % (0.0-1.0); EOSINOPHILS # (AUTO) 0.1 (0.0-0.4); EOSINOPHILS % 0.3 % (0.0-6.0); HEMATOCRIT 41.4 % (34.2-44.1); HEMOGLOBIN 14.1 g/dL (12.0-16.0); LYMPHOCYTES # (AUTO) 2.8 (1.0-3.2); LYMPHOCYTES % 15.5 % (18.0-39.1); MEAN CORPUSCULAR HEMOGLOBIN 28.1 pg (28-32); MEAN CORPUSCULAR HGB CONC 34.1 g/dL (31-35); MEAN CORPUSCULAR VOLUME 82.6 fL (81-99); MONOCYTES # (AUTO) 1.6 (0.2-0.8); MONOCYTES % 8.5 % (4.4-11.3); NEUTROPHILS # (AUTO) 13.6 (2.1-6.9); NEUTROPHILS % 74.2 % (38.7-80.0); PLATELET COUNT 306 x10e3/uL (140-360); RED BLOOD COUNT 5.01 x10e6/uL (3.6-5.1); RED CELL DISTRIBUTION WIDTH 13.4 % (11.7-14.4)
[2020-04-08 21:21] LABS: ALANINE AMINOTRANSFERASE 17 IU/L (0-55); ALBUMIN 3.9 g/dL (3.5-5.0); ALBUMIN/GLOBULIN RATIO 1.2 (0.8-2.0); ALKALINE PHOSPHATASE 88 IU/L (40-150); ANION GAP 16.4 mmol/L (8-16); BLOOD UREA NITROGEN 19 mg/dL (7-26); BUN/CREATININE RATIO 21 (6-25); CALCIUM 8.2 mg/dL (8.4-10.2); CARBON DIOXIDE 23 mmol/L (22-29); CHLORIDE 100 mmol/L (98-107); EST GLOMERULAR FILTRATION RATE > 60 ML/MIN (60-); GLUCOSE 107 mg/dL (74-118); POTASSIUM 3.4 mmol/L (3.5-5.1); SODIUM 136 mmol/L (136-145)
[2020-04-08] MEDS ORDERED: SODIUM CHLORIDE 0.9% 50ML 50 ML ONE (21:35)
[2020-04-08] MEDS ORDERED: IOPAMIDOL 370 MG/ML 200 ML INFUS..BTL INJ ONE (21:36)
--- NOTE | 2020-04-08 23:06 | Diagnostic Imaging Report ---
EXAM: CTA of the Abdominal Aorta and Pelvic Arteries WITH Contrast INDICATION: ^abd pain ^[id number] ^2148 COMPARISON: None. TECHNIQUE: Multi-detector CT technology was employed. CTA of the abdomen and pelvis was performed after the administration of IV contrast. IV CONTRAST: 100 mL of Isovue-370 ORAL CONTRAST: None COMPLICATIONS: None RADIATION DOSE: Total DLP: 1593.96 mGy*cm Estimated effective dose: (DLP x 0.015 x size factor) mSv CTDIvol has been reviewed. It is below the limits set by the Radiation Protocol Committee (RPC). For optimization of anatomic evaluation, multiplanar reconstruction, maximum intensity projections, and advanced 3-D off-line postprocessing were performed on a dedicated stand-alone workstation under the direct supervision of the interpreting physician. FINDINGS: Potential study limitations: None. The abdominal aorta is normal in course, caliber, and contour. There is no acute aortic pathology. No abdominal aortic aneurysm. Normal abdominal aortic measurements. Aortic plaques: Moderate. The celiac axis, SMA, and MIA are patent. There are single renal arteries bilaterally, both of which appear patent. However, there is moderate to severe calcification at the ostium of the left renal artery. The pelvic arteries are normal in caliber and contour. There are moderate to severe atherosclerotic changes of the pelvic arteries. LOWER CHEST: Posterior left base cyst/pneumatoceles. Punctate subpleural left base calcified granuloma.. ABDOMEN: Cholecystectomy. Mild intrahepatic biliary dilatation. Common bile duct is distended up to 1.8 cm. Hepatomegaly. No hepatic mass. Splenomegaly. Pancreatic ductal dilatation, measuring up to 9 mm proximally. Mild pancreatic atrophy. Adrenal glands are unremarkable. No hydronephrosis. No renal mass. Bowel loops are unremarkable. No evidence of bowel obstruction. Contrast from prior study is seen within colon. Wall thickening and change in caliber of colon at splenic flexure (series 6, image 32). Appendix is not visualized. There is no significant retroperitoneal adenopathy. Few nonspecific retroperitoneal lymph nodes measuring up to 1 cm (series 6, image 72). 1.2 cm pericaval lymph node No free fluid or free air within the abdomen or pelvis. BONES: Prior left femoral head pin fixation. Left iliac sclerotic focus (series 6, image 125). Mild age-indeterminate healthy and L4 superior to compression deformity, likely degenerative. Degenerative changes, most notable at L5-S1. Small bowel containing ventral hernia. IMPRESSION: 1. No acute abdominal aortic pathology. Moderate aortoiliac atherosclerotic disease. 2. Biliary dilatation, greater than expected post cholecystectomy reservoir effect. There is also pancreatic ductal dilatation. Ampullary lesion cannot be excluded. Recommend GI consult and if indicated correlation with ERCP or endoscopic examination. 3. Mild wall thickening and abrupt change caliber of colon in splenic flexure. Underlying colonic lesion cannot be excluded. 4. Few indeterminate prominent retroperitoneal lymph nodes. Attention on follow-up examination. 5. Left iliac sclerotic focus, could present a bone island. This can be confirmed with bone scan. Signed by: Dr. Lisandro Whalen MD on 04/08/2020 11:02 PM
[2020-04-08] MEDS ORDERED: ONDANSETRON HCL INJ 2MG/ML 2ML 2 MG/ML VIAL IV PRN (23:45)
[2020-04-08] MEDS ORDERED: ASPIRIN 81 MG CHEW TAB PO ONE (23:45)
[2020-04-09] VITALS (9 sets, daily range): BP systolic 101–139; BP diastolic 55–73
[2020-04-09] MEDS ORDERED: PIPER-TAZ 3.375 GM 50 ML IV SCH
--- OUTSIDE RECORDS SUMMARY | 2020-04-09 00:08 | XMS REPORT | Continuity of Care Document ---
Author Author [facility] t Organization [facility] Address [facility] [place] [address] Phone Unavailable Care Team Providers [facility] [employer] [facility] [employer] Paralegal Name Role Phone MARILIA GOMEZ Attedna Unavailable Celeste JERONIMO Attphys Unavailable Payers Payer Name Policy Type Policy Number Effective Date Expiration Date S ource Problems This patient has no known problems. Allergies, Adverse Reactions, Alerts Allergy Name Allergy Type Status Severity Reaction(s) Onset Date Inacti ve Date Treating Clinician Comments Source pentazocine DA Active U 2015-11-29 00:00:00 [facility] Medications This patient has no known medications. Procedures This patient has no known procedures. Results Test Description Test Time Test Comments Results Result Comments Source CTA ABD/PELVIS 2020-04-08 22:40:00 [facility] [address] [place] [address] Patient Name: MARIA R LOAIZA MR #: [id number] : 1955 Age/Sex: 64/F Req #: [id number] Adm Physician: Ordered by: MARILIA GOMEZ DO Report #: [id number] Location: ER Room/Bed: Procedure: [id number] CT/CTA ABD/PELVIS Exam Date: 04/08/20 Exam Time: 2148 REPORT STATUS: Signed EXAM: CTA of the Abdominal Aorta and Pelvic Arteries WITH Contrast INDICATION: abd pain [id number] COMPARISON: None. TECHNIQUE: Multi-detector CT technology was employed. CTA of the abdomen and pelvis was performed after the administration of IV contrast. IV CONTRAST: 100 mL of Isovue-370 ORAL CONTRAST: None COMPLICATIONS: None RADIATION DOSE: Total DLP: 1593.96 mGy*cm Estimated effective dose: (DLP x 0.015 x size factor) mSv CTDIvol has been reviewed. It is below the limits set by the Radiation Protocol Committee (RPC). For optimization of anatomic eval uation, multiplanar reconstruction, maximum intensity projections, and advanced 3-D off-line postprocessing were performed on a dedicated stand-alone workstation under the direct supervision of the interpreting physician. FINDINGS: Potential study limitations: None. The abdominal aorta is normal in course, caliber, and contour. There is no acute aortic pathology. No abdominal aortic aneurysm. Normal abdominal aortic measurements. Aortic plaques: Moderate. The celiac axis, SMA, and MIA are patent. There are single renal arteries bilaterally, both of which appear patent. However, there is moderate to severe calcification at the ostium of the left renal artery. The pelvic arteries are normal in caliber and contour. There are moderate to severe atherosclerotic changes of the pelvic arteries. LOWER CHEST: Posterior left base cyst/pneumatoceles. Punctate subpleural left base calcified granuloma.. ABDOMEN: Cholecystectomy. Mild intrahepatic biliary dilatation. Common bile duct is distended up to 1.8 cm. Hepatomegaly. No hepatic mass. Splenomegaly. Pancreatic ductal dilatation, measuring up to 9 mm proximally. Mild pancreatic atrophy. Adrenal glands are unremarkable. No hydronephrosis. No renal mass. Bowel loops are unremarkable. No evidence of bowel obstruction. Contrast from prior study is seen within colon. Wall thick ening and change in caliber of colon at splenic flexure (series 6, image 32). Appendix is not visualized. There is no significant retroperitoneal adenopathy. Few nonspecific retroperitoneal lymph nodes measuring up to 1 cm (series 6, image 72). 1.2 cm pericaval lymph node No free fluid or free air within the abdomen or pelvis. BONES: Prior left femoral head pin fixation. Left iliac sclerotic focus (series 6, image 125). Mild age- indeterminate healthy and L4 superior to compression deformity, likely degenerative. Degenerative changes, most notable at L5-S1. Small bowel contai hank ventral hernia. IMPRESSION: 1. No acute abdominal aortic pathology. Moderate aortoiliac atherosclerotic disease. 2. Biliary dilatation, greater than expected post cholecystectomy reservoir effect. There is also pancreatic ductal dilatation. Ampullary lesion cannot be excluded. Recommend GI consult and if indicated correlation with ERCP or endoscopic examination. 3. Mild wall thickening and abrupt change caliber of colon in splenic flexure. Underlying colonic lesion cannot be excluded. 4. Few indeterminate prominent retroperitoneal lymph nodes. Attention on follow-up examination. 5. Left iliac sclerotic focus, could present a bone island. This can be confirmed with bone scan. Signed by: Dr. Lisandro Cruz MD on 04/08/2020 11:02 PM Dictated By: LISANDRO CRUZ MD 01 Transcribed By: NELY on 04/08/202301 COPY TO: MARILIA GOMEZ DO - CT ABD PELVIS W WO CONT 2020-04-08 16:59:00 Name: MARIA R LOAIZA [facility] : 1955 Age/S: 64 / F [address] [facility] Unit #: [id number] [place]: [place] [address] Phys: Morelia Trujillo MD Acct: [id number] Dis Date: Status: ADM IN PHONE #: [phone] Exam Date: 04/08/2020 1630 FAX #: [phone] Reason: Abdominal pain and diarrhea EXAMS: CPT CODE: [id number] CT ABD PELVIS W WO CONT 37444 REASON FOR EXAM: Abdominal pain and diarrhea EXAM ORDER DATE: 04/08/2020 11:54 AM Ordering: Morelia Trujillo MD Attending:Maryuri Esquivel MD Location:[facility] PROCEDURE: - CT ABD PELVIS W WO [...] artery to rule out SMA occlusion. at 7366 Reported and signed by: Wes Marina M.D. PAGE 1 Signed Report (CONTINUED) Name: MARIA R LOAIZA [facility] : 1955 Age/S: 64 / F [address] [facility] Unit #: [id number] Loc: [place] [address] Phys: Morelia Trujillo MD Acct: [id number] Dis Date: Status: ADM IN PHONE #: [phone] Exam Date: 04/08/2020 1630 FAX #: [phone] Reason: Abdominal pain and diarrhea EXAMS: CPT CODE: [id number] CT ABD PELVIS W WO CONT 50240 <Continued> CC: Morelia Trujillo MD; Félix Jeronimo MD; Maryuri Esquivel MD Technologist:July Avila RT(R); SAMARA Gomez CTDI: DLP: Trnscb Date/Time: 04/08/2020 (377) t.HE Orig Print D/T: S: 04/08/2020 (2868) PAGE 2 Signed Report COVID 19 INHOUSE AG 2020-04-08 02:40:00 Test Item COVID 19 INHOUSE AG (test code = [id number]) NEGATIVE - XR CHEST 1 [id number] 00:31:00 Name: MARIA R LOAIZA [facility] : 1955 Age/S:64 /F [address] [facility] Unit#:[id number] Loc: [place] [address] Phys: June Hearn MD Dis Date: PHONE #: [phone] Status: PRE ER FAX #: [phone] Exam Date: 04/08/2020 Reason: CHEST PAIN EXAMS: CPT CODE: [id number] XR CHEST 1 V 89558 AFTER HOURS SERVICE ON: 04/08/2020 12:30 AM AP Portable Chest Location Code M12 HISTORY: CHEST PAIN FINDINGS: There are no infiltrates. There are no pleural effusions. There is no pneumothorax. Cardiac silhouette and mediastinum appear within normal limits. IMPRESSION: No active pulmonary findings. at 0031 Reported and signed by: Jens Oneil M.D. CC: Félix Jeronimo MD Technologist: DEAN AGUSTIN RT(R),RDMS,CT Trnsct Data: 04/08/2020 (0031) t.[email or web address] Orig Print D/T: S: 04/08/2020 (0034) PAGE 1 Signed Report URINALYSIS [id number] 00:08:00* Test Item Value Reference Range Interpretation [...] Urine Source? Clean CatchDRUGS OF ABUSE SCREEN [id number] 00:08:00* Test Item Value Reference Range Interpretation [...] NEGATIVE NEGATIV E Urine Source? Clean CatchURINALYSIS [id number] 00:00:00* Test Item Value Reference Range Interpretation [...] Urine Source? Clean CatchDRUGS OF ABUSE SCREEN [id number] 00:00:00* Test Item Value Reference Range Interpretation Comments URN COCAINE (test code = COCAURN) NEGATIVE URN CANNABINOIDS (test code = CANNABURN) NEGATIVE URN AMPHETAMINE (test code = AMPHETURN) NEGATIVE URN BARBITURATE (test code = BARBITURN) NEGATIVE URN BENZODIAZEPINE (test code = BENZOURN) NEGATIVE URN OPIATES (test code = OPIATURN) NEGATIVE URN PHENCYCLIDINE (PCP) (test code = PHENCURN) NEGATIV E Urine Source? Clean CatchURINALYSIS [id number] 23:57:00* Test Item Value Reference Range Interpretation [...] Urine Source? Clean CatchDRUGS OF ABUSE SCREEN [id number] 23:57:00* Test Item Value Reference Range Interpretation [...] NEGATIV E Urine Source? Clean CatchBASIC METABOLIC [id number] 23:53:00* Test Item Value Reference Range Interpretation Comments SODIUM (test code = NA) 132 mmol/L 136-145 L POTASSIUM (test code = K) 2.9 mmol/L 3.5-5.1 L Re sults called to [id number] by DONAL 04/07/20 0029Critical results verified and read back by Nurse? [...] CA) 9.0 mg/dL 8.4-10.2 N HEPATIC FUNCTION [id number] 23:53:00* Test Item Value Reference Range Interpretation [...] code = ALKP) 107 U/L 38-126 N [id number] 23:53:00* Test Item Value Reference Range Interpretation Comments LIPASE (test code = LIP) 226 U/L 128-270 N [id number] 23:53:00* Test Item Value Reference Range Interpretation Comments TROPONIN-I (test code = TROPI) <0.015 ng/mL 0.00-0.056 N BASIC METABOLIC [id number] 23:49:00* Test Item Value Reference Range Interpretation Comments SODIUM (test code = NA) 132 mmol/L 136-145 L POTASSIUM (test code = K) 2.9 mmol/L 3.5-5.1 L Re sults called to [id number] by DONAL 04/07/20 0939Critical results verified and read back by Nurse? [...] CA) 9.0 mg/dL 8.4-10.2 N HEPATIC FUNCTION [id number] 23:49:00* Test Item Value Reference Range Interpretation [...] TOTAL (test code = ALKP) IUnit/L 45-117 [id number] 23:49:00* Test Item Value Reference Range Interpretation Comments LIPASE (test code = LIP) Unit/L 144-286 [id number] 23:49:00* Test Item Value Reference Range Interpretation Comments TROPONIN-I (test code = TROPI) ng/mL 0-0.045 CBC W/O [id number] 23:37:00* Test Item Value Reference Range Interpretation [...] 8.9 fL 6.7-11.0 N RIBS UNILAT W/CXR [facility] [address] [place] [address] Patient Name: MARIA R LOAIZA MR #: [id number] : 1955 Age/Sex: 61/F Req #: [id number] Adm Physician: Ordered by: TRINO JERONIMO MD Report #: [id number] Location: [facility] Room/Bed: Procedure: [id number] DX/RIBS UNILAT W/CXR Tyrone angelo Date: 04/16/17 Exam Time: 1645 REPORT STATUS: Signed PROCEDURE: X-RAY UNILATERAL RIBS WITH CHEST X-RAY COMPARISON: [facility], DX, THORACIC SPINE AP T LA, [...] 18:14 Dictated By: JAKE PITTMAN MD, MD 1814 Transcribed By: ASHKAN on 04/16/171813 COPY TO: TRINO JERONIMO MD SACRUM X-RAY [place] [address] Patient Name: MARIA R LOAIZA MR #: [id number] : 1955 Age/Sex: 61/F Req #: [id number] Adm Physician: Ordered by: TRINO JERONIMO MD Report #: [id number] Location: [facility] Room/Bed: Procedure: [id number] DX/SACRUM X-RAY Exam Evan e: 04/11/17 Exam [...] JERONIMO MD SP LUMBAR, COMPLETE MIN 4VW [place] [address] Patient Name: MARIA R LOAIZA MR #: [id number] : 1955 Age/Sex: 61/F Req #: [id number] [facility] Physician: Ordered by: TRINO JERONIMO MD Report #: [id number] Location: [facility] Room/Bed: Procedure: [id number] DX/SP LUMBAR, COMPLETE [place] N 4VW Exam Date: 04/11/17 Exam Time: [...] TO: TRINO JERONIMO MD THORACIC SPINE AP [place] [address] Patient Name: MARIA R LOAIZA MR #: [id number] : 1955 Age/Sex: 61/F Req #: [id number] Adm Physician: Ordered by: TRINO JERONIMO MD Report #: [id number] Location: [facility] Room/Bed: Procedure: [id number] DX/THORACIC SPINE AP [place] Exam Date: 04/11/17 [...] at 18:30 Dictated By: RONALD PEÑA MD 29 Transcribed By: ASHKAN on 04/11/171829 COPY TO: ALLIE JERONIMO MD
[2020-04-09] MEDS: PIPER-TAZ 3.375 GM 50 ML IV SCH ×5 (00:20→23:05)
[2020-04-09] MEDS: SODIUM CHLORIDE 0.9% 1000ML 1,000 ML IV SCH ×3 (00:20→18:49)
[2020-04-09] MEDS ORDERED: HYDRALAZINE HCL 20 MG/ML VIAL IV PRN (00:45)
[2020-04-09] MEDS ORDERED: DOCUSATE SODIUM 100 MG CAP PO PRN (00:45)
[2020-04-09] MEDS: MORPHINE SULFATE INJ 4 MG/ML INJ 1ML IV PRN ×4 (02:00→14:30)
[2020-04-09] MEDS: ONDANSETRON HCL INJ 2MG/ML 2ML 2 MG/ML VIAL IV PRN ×5 (02:00→23:05)
[2020-04-09] MEDS ORDERED: ADVAIR HFA 115-12 GM (02:54)
--- NOTE | 2020-04-09 06:50 | NUR ---
BEDSIDE SHIFT REPORT RECEIVED FROM OFF GOING NURSE. PATIENT IS IN STABLE CONDITION, NO ACUTE DISTRESS NOTED. CALL LIGHT WITHIN REACH. BED IN THE LOWEST POSITION.
[2020-04-09 09:12] LABS: BASOPHILS # (AUTO) 0.1 (0.0-0.1); BASOPHILS % 0.3 % (0.0-1.0); EOSINOPHILS # (AUTO) 0.1 (0.0-0.4); EOSINOPHILS % 0.9 % (0.0-6.0); HEMATOCRIT 38.3 % (34.2-44.1); HEMOGLOBIN 12.5 g/dL (12.0-16.0); LYMPHOCYTES # (AUTO) 3.2 (1.0-3.2); LYMPHOCYTES % 21.4 % (18.0-39.1); MEAN CORPUSCULAR HEMOGLOBIN 27.8 pg (28-32); MEAN CORPUSCULAR HGB CONC 32.6 g/dL (31-35); MEAN CORPUSCULAR VOLUME 85.3 fL (81-99); MONOCYTES # (AUTO) 1.3 (0.2-0.8); MONOCYTES % 8.6 % (4.4-11.3); NEUTROPHILS # (AUTO) 10.1 (2.1-6.9); NEUTROPHILS % 67.3 % (38.7-80.0); PLATELET COUNT 255 x10e3/uL (140-360); RED BLOOD COUNT 4.49 x10e6/uL (3.6-5.1); RED CELL DISTRIBUTION WIDTH 13.4 % (11.7-14.4)
[2020-04-09 09:41] LABS: ALANINE AMINOTRANSFERASE 20 IU/L (0-55); ALBUMIN 3.3 g/dL (3.5-5.0); ALBUMIN/GLOBULIN RATIO 1.2 (0.8-2.0); ALKALINE PHOSPHATASE 77 IU/L (40-150); ANION GAP 14.8 mmol/L (8-16); BLOOD UREA NITROGEN 12 mg/dL (7-26); BUN/CREATININE RATIO 15 (6-25); CALCIUM 7.9 mg/dL (8.4-10.2); CARBON DIOXIDE 22 mmol/L (22-29); CHLORIDE 106 mmol/L (98-107); CREATININE, SERUM 0.79 mg/dL (0.57-1.11); EST GLOMERULAR FILTRATION RATE > 60 ML/MIN (60-); GLUCOSE 89 mg/dL (74-118); POTASSIUM 3.8 mmol/L (3.5-5.1); SODIUM 139 mmol/L (136-145)
[2020-04-09] MEDS ORDERED: TRAZODONE HCL 50 MG TAB PO PRN (15:30)
--- NOTE | 2020-04-09 15:48 | Consultation ---
DATE OF CONSULTATION: CHIEF COMPLAINT: Abdominal pain. HISTORY OF PRESENT ILLNESS: This is a very pleasant 64-year-old lady, coming with abdominal pain, pain in the epigastrium, nausea and vomiting. She had some diarrhea. She had a white count of 25,[address] [place]. She had a CT scan that showed possible abnormality in the sigmoid colon. Dilated bile ducts. LFTs are normal. She also has atrophy of the pancreas on CT scan. She had a CT angio that did not show any evidence of obstruction of the blood vessels in the abdomen. PAST MEDICAL HISTORY: See old records from the computer. MEDICATIONS: See list and that includes antibiotics, aspirin, Zosyn, and morphine. PHYSICAL EXAMINATION: VITAL SIGNS: Blood pressure 140/80, pulse 80, temperature 98. GENERAL: A well-nourished white lady, in no distress. HEENT: No pallor. ABDOMEN: Soft, nontender. EXTREMITIES: No edema. ASSESSMENT: Gastroenteritis, rule out Clostridium difficile. However, she is improving, just on Zosyn. Most likely she has some kind of bacterial gastroenteritis. However, she has had some epigastric pain, but she states that she had ulcers in the past and also she had an abnormal CT scan with possible pathology in the sigmoid colon. I will recommend to continue current treatment. Clear liquid diet. We will plan on doing a colonoscopy and EGD as an inpatient on Saturday. Jaime Faustin MD HSO/MODL /[id number] cc: Hasmukh Jeronimo MD
[2020-04-09] MEDS ORDERED: LOPERAMIDE HCL 2 MG CAP PO PRN (16:15)
[2020-04-09] MEDS: PANTOPRAZOLE SOD 40 MG TABEC PO SCH (17:00)
[2020-04-09] MEDS: SUCRALFATE 1 GM/10 ML SUSP NG SCH (17:00)
[2020-04-09 17:03] LABS: CREATINE KINASE MB 1.3 ng/mL (0-5.0)
[2020-04-09] MEDS: MORPHINE SULFATE 2 MG/ML SYR 1ML IV PRN ×2 (18:49→23:05)
--- NOTE | 2020-04-09 19:06 | NUR ---
BEDSIDE SHIFT REPORT GIVEN TO ONCOMING NURSE. PATIENT IS IN STABLE CONDITION. IV LINE PATENT, FLUIDS GOING. CALL LIGHT WITHIN REACH. BED IN THE LOWEST POSITION.
[2020-04-10] VITALS (8 sets, daily range): BP systolic 110–141; BP diastolic 52–63
[2020-04-10] MEDS: ONDANSETRON HCL INJ 2MG/ML 2ML 2 MG/ML VIAL IV PRN ×4 (03:20→15:35)
[2020-04-10] MEDS: MORPHINE SULFATE 2 MG/ML SYR 1ML IV PRN ×4 (03:20→15:36)
[2020-04-10] MEDS: PIPER-TAZ 3.375 GM 50 ML IV SCH ×4 (05:36→23:22)
[2020-04-10] MEDS: SODIUM CHLORIDE 0.9% 1000ML 1,000 ML IV SCH ×2 (05:36→18:30)
[2020-04-10 06:25] LABS: BASOPHILS # (AUTO) 0.1 (0.0-0.1); BASOPHILS % 0.4 % (0.0-1.0); EOSINOPHILS # (AUTO) 0.2 (0.0-0.4); EOSINOPHILS % 1.4 % (0.0-6.0); HEMATOCRIT 37.7 % (34.2-44.1); HEMOGLOBIN 12.3 g/dL (12.0-16.0); LYMPHOCYTES # (AUTO) 2.8 (1.0-3.2); LYMPHOCYTES % 23.1 % (18.0-39.1); MEAN CORPUSCULAR HEMOGLOBIN 27.8 pg (28-32); MEAN CORPUSCULAR HGB CONC 32.6 g/dL (31-35); MEAN CORPUSCULAR VOLUME 85.1 fL (81-99); MONOCYTES % 8.4 % (4.4-11.3); NEUTROPHILS # (AUTO) 7.9 (2.1-6.9); NEUTROPHILS % 64.7 % (38.7-80.0); PLATELET COUNT 247 x10e3/uL (140-360); RED BLOOD COUNT 4.43 x10e6/uL (3.6-5.1); RED CELL DISTRIBUTION WIDTH 13.5 % (11.7-14.4)
--- NOTE | 2020-04-10 06:44 | NUR ---
RECEIVED BEDSIDE SHIFT REPORT FROM OFF GOING NURSE. PATIENT IS RESTING IN BED, NO ACUTE DISTRESS NOTED. CALL LIGHT WITHIN REACH. BED IN THE LOWEST POSITION. BED ALARM ON.
[2020-04-10 06:49] LABS: ANION GAP 12.3 mmol/L (8-16); BLOOD UREA NITROGEN 6 mg/dL (7-26); BUN/CREATININE RATIO 8 (6-25); CALCIUM 7.6 mg/dL (8.4-10.2); CARBON DIOXIDE 19 mmol/L (22-29); CHLORIDE 109 mmol/L (98-107); CREATININE, SERUM 0.72 mg/dL (0.57-1.11); EST GLOMERULAR FILTRATION RATE > 60 ML/MIN (60-); GLUCOSE 91 mg/dL (74-118); POTASSIUM 3.3 mmol/L (3.5-5.1); SODIUM 137 mmol/L (136-145)
--- NOTE | 2020-04-10 07:19 | History and Physical ---
CHIEF COMPLAINT: Abdominal pain, nausea, and vomiting. HISTORY OF PRESENT ILLNESS: A 64-year-old woman with history of hypertension, acid reflux, and chronic pain syndrome, who presented to the emergency room medical advice in the ER with persistence of the abdominal pain and diarrhea. The patient reports that the abdominal pain has been ongoing for the last several days. Also reports some nausea with decreased oral intake. denies any black tarry stool . The patient reports that she has been already decreased oral intake and not drinking much fluids at all. The patient is seen and evaluated at bedside on the medical floor. Currently, she is doing well. REVIEW OF SYSTEMS: Pertinent positives: Diarrhea, decreased oral intake, . The rest of the 14-point review of systems have been reviewed with the patient and are negative. ALLERGIES: , ZOSYN. HOME MEDICATIONS: PAST MEDICAL HISTORY: COPD, . PAST SURGICAL HISTORY: FAMILY HISTORY: None. SOCIAL HISTORY: No drugs. No alcohol. Does not smoke. PHYSICAL EXAMINATION: VITAL SIGNS: Temperature is 98.5, pulse is 60, respiratory rate is 20, blood pressure . GENERAL: Not in acute distress. Alert and oriented x3. She is cooperative on examination. PULMONARY: . No wheezing, rales, or rhonchi. No crackles appreciated. CARDIOVASCULAR: Positive S1, S2. No murmurs, rubs, or gallops appreciated. ABDOMEN: Soft, nondistended, and nontender to palpation. Bowel sounds present. MUSCULOSKELETAL: Strength is 5/5 throughout. No evidence of muscle deficits on examination. No weakness appreciated. NEUROLOGICAL: Cranial nerves II through XII grossly intact. LABORATORY DATA: CBC; , hematocrit 38, platelets of 255. . Serology, are pending. Coronavirus pending. CT of the abdomen and pelvis shows no change abdominal aortic pathology. Biliary dilatation . There is no pancreatic . Mild wall thickening . . ASSESSMENT: 1. Abdominal pain with nausea and vomiting. 2. Diarrhea. 3. Chronic pain syndrome. 4. as planned. At this time, resume same home medications. We did get a stool culture for Clostridium difficile toxin. Her abdominal pain seems to have improved. GI was consulted and EGD and colonoscopy on Saturday . Resume same home medications. Lovenox for DVT prophylaxis. We will get a.m. labs. Discussed plan of care with nursing staff and the patient at bedside. MD CHECO Tran/ЮЛИЯ /[id number]
[2020-04-10] MEDS: PANTOPRAZOLE SOD 40 MG TABEC PO SCH ×2 (07:28→15:35)
[2020-04-10] MEDS: SUCRALFATE 1 GM/10 ML SUSP NG SCH ×3 (07:28→15:35)
[2020-04-10] MEDS ORDERED: PREGABALIN 75 MG CAP PO SCH (09:00)
[2020-04-10] MEDS: LISINOPRIL 10 MG TAB PO SCH (09:00)
[2020-04-10] MEDS: PREGABALIN 50 MG CAP PO SCH (09:33)
[2020-04-10] MEDS ORDERED: POTASSIUM CHLORIDE 20 MEQ TAB CR PO NR (14:04)
[2020-04-10] MEDS ORDERED: TIZANIDINE HCL4 MG PO (15:49)
--- NOTE | 2020-04-10 15:53 | NUR ---
CALLED PATIENTS PHARMACY AND SPOKE TO PHARMACIST (BARBI) TO VERIFY PAIN MEDICATIONS. PER PHARMACIST PATIENT TAKES FENTANYL 50MCG PATCH Q72H, NORCO 10-325MG PO Q6H PRN, AND TIZANIDINE 4MG PO Q8H PRN. PER DR. LARA CONTINUE FENTANYL AND NORCO, NO TIZANIDINE AT THIS TIME.
[2020-04-10] MEDS: FENTANYL 50 MCG/HR PATCH TOP SCH (16:44)
[2020-04-10] MEDS ORDERED: MELATONIN 5 MG TABLET PO PRN (19:15)
[2020-04-10] MEDS: HYDROCODONE/APAP 10MG-325MG TAB PO PRN (19:37)
[2020-04-11] VITALS (8 sets, daily range): BP systolic 101–137; BP diastolic 52–63
[2020-04-11] MEDS: HYDROCODONE/APAP 10MG-325MG TAB PO PRN ×4 (01:37→19:54)
--- NOTE | 2020-04-11 02:48 | Progress Note ---
DATE: 04/10/2020 Medicine SUBJECTIVE: The patient is doing well today. She reports having some chronic back pain and is on fentanyl patch. We confirmed that from the pharmacy that she buys from, she does take fentanyl at home. In terms of her diarrhea, it has all resolved. Her abdominal pain is improving. She is scheduled for EGD and colonoscopy on Saturday. PHYSICAL EXAMINATION: VITAL SIGNS: Temperature is 98.3, pulse 52, respiratory rate is 19, blood pressure 121/63, pulse ox 97% on room air. GENERAL: No acute distress. Alert and oriented x3. Cooperative on examination. HEENT: Head is normocephalic and atraumatic. Eyes; pupils are equal, round, and reactive to light bilaterally. Extraocular movements are intact bilaterally. Throat, no evidence of any erythema or exudates in the posterior pharynx. Has poor dentition. NECK: Supple. Good range of motion. PULMONARY: Clear to auscultation bilaterally. No wheezing, rales, or rhonchi. No crackles appreciated. CARDIOVASCULAR: Positive S1 and S2. No murmurs, rubs, or gallops appreciated. ABDOMEN: Soft, nondistended, and nontender to palpation. Bowel sounds present. MUSCULOSKELETAL: Strength is 5/5 throughout. No evidence of any muscle deficits on examination. No weakness appreciated. NEUROLOGICAL: Cranial nerves 2 through 12 grossly intact. No evidence of any neurological deficits on exam. SKIN: Intact. Warm to touch. Good cap refill. PSYCHIATRIC: Normal affect and mood. EXTREMITIES: No edema. Good range of motion throughout. LABORATORY FINDINGS: Show white count is 12, hemoglobin is 12, hematocrit is 37, and platelets of 237. Chemistry; sodium 137, potassium 3.3, chloride 109, bicarb 19, anion gap of 12, BUN is 6, creatinine is 0.72, calcium is 7.6. Coronavirus not detected. IMPRESSION: 1. Abdominal pain with nausea and vomiting with underlying diarrhea. 2. Chronic pain syndrome. 3. History of back surgery. PLAN: At this time, still pending stool cultures and C diff toxin. Continue with IV antibiotic therapy. Abdominal pain has been improved. GI is following, scheduled for EGD and colonoscopy on Saturday. As for the pain, we called the patient's pharmacy and the patient is taking fentanyl patch including [place] 10 mg 3 times a day. We are going to go ahead and resume that to avoid any kind of opioid withdrawals. The patient reportedly needs that as she has been taking from several number of years. Continue with same plan of care and monitor closely. Get Cardiology for cardiac clearance for procedure on Saturday. MD CHECO Tran/ЮЛИЯ /[id number]
[2020-04-11] MEDS: PIPER-TAZ 3.375 GM 50 ML IV SCH ×3 (05:59→17:13)
[2020-04-11 06:37] LABS: BASOPHILS % 0.4 % (0.0-1.0); EOSINOPHILS # (AUTO) 0.2 (0.0-0.4); EOSINOPHILS % 2.1 % (0.0-6.0); HEMATOCRIT 32.9 % (34.2-44.1); HEMOGLOBIN 10.8 g/dL (12.0-16.0); LYMPHOCYTES # (AUTO) 3.7 (1.0-3.2); LYMPHOCYTES % 38.3 % (18.0-39.1); MEAN CORPUSCULAR HGB CONC 32.8 g/dL (31-35); MEAN CORPUSCULAR VOLUME 88.2 fL (81-99); MONOCYTES # (AUTO) 0.9 (0.2-0.8); MONOCYTES % 9.5 % (4.4-11.3); NEUTROPHILS # (AUTO) 4.6 (2.1-6.9); NEUTROPHILS % 47.7 % (38.7-80.0); PLATELET COUNT 202 x10e3/uL (140-360); RED BLOOD COUNT 3.73 x10e6/uL (3.6-5.1); RED CELL DISTRIBUTION WIDTH 13.8 % (11.7-14.4)
[2020-04-11 06:51] LABS: ANION GAP 10.4 mmol/L (8-16); BLOOD UREA NITROGEN 5 mg/dL (7-26); BUN/CREATININE RATIO 7 (6-25); CALCIUM 7.5 mg/dL (8.4-10.2); CARBON DIOXIDE 20 mmol/L (22-29); CHLORIDE 112 mmol/L (98-107); CREATININE, SERUM 0.74 mg/dL (0.57-1.11); EST GLOMERULAR FILTRATION RATE > 60 ML/MIN (60-); GLUCOSE 87 mg/dL (74-118); POTASSIUM 4.4 mmol/L (3.5-5.1); SODIUM 138 mmol/L (136-145)
--- NOTE | 2020-04-11 07:07 | NUR ---
REPORT GIVEN TO DAY NURSE. PATIENT IS RESTING IN BED. BED IS IN LOWEST POSITION AND CALL LIGHT IS WITHIN REACH
[2020-04-11] MEDS: SUCRALFATE 1 GM/10 ML SUSP NG SCH ×3 (08:26→16:12)
[2020-04-11] MEDS: PREGABALIN 50 MG CAP PO SCH (08:26)
[2020-04-11] MEDS: PANTOPRAZOLE SOD 40 MG TABEC PO SCH ×2 (08:26→16:12)
[2020-04-11] MEDS: LISINOPRIL 10 MG TAB PO SCH (08:27)
--- NOTE | 2020-04-11 12:45 | NUR ---
RECEIVED REPORT FROM OMAR GLASER. PATIENT IN STABLE CONDITION, NO S/S OF DISTRESS NOTED. TELEMETRY APPLIED. IV FLUIDS INFUSING, SITE ASYMPTOMATIC AND PATENT, TRANSPARENT DRESSING C/D/I. BED IN LOWEST POSTION AND LOCKED, SIDE RAILS X 2, NON SKID SOCKS APPLIED. CALL LIGHT WITHIN REACH.
--- NOTE | 2020-04-11 12:50 | Consultation ---
DATE OF CONSULTATION: 04/11/2020 Cardiac Consultation REASON FOR CONSULTATION: Cardiac evaluation and clearance for GI workup. HISTORY: A 64-year-old lady who is known with hypertension, COPD smoker's, chronic back pain with radiculopathy and left hip pain. The patient came to this institution because of nausea, vomiting, epigastric discomfort, and diarrhea. Her white blood cell counts were elevated. A CT scan done, which showed abnormality in her pancreas and sigmoid colon as per GI note. She is considered for EGD and colonoscopy. Cardiac acosta, the patient does have easy fatigability, shortness of breath on exertion. There is no orthopnea, no paroxysmal nocturnal dyspnea. There is occasional chest pain with typical and atypical characteristic. She said she had a few months back stress test by Dr. Rose Jeronimo in his office and reported normal. She is treated medically. She does have occasional cough and occasional sputum secretion. There is no pleuritic nor pericarditic chest pain. In another word, her cardiac and pulmonary symptoms are relatively stable. The patient came to institution because of her GI pain. She has consented for EGD and colonoscopy. REVIEW OF SYSTEMS: Done to all systems, will be summarized for clarity. GENERAL: No fever, no chills. HEENT: No vision problem. No hearing problem. PULMONARY: As per above. CARDIAC: As per above. GI: As per above. : Incontinence at that time. MUSCULOSKELETAL: Back pain with radiculopathy to the left leg. PAST MEDICAL HISTORY: 1. No feeling in this left 2nd and 3rd toe following a fracture. 2. Chronic pain. 3. Cholecystectomy. 4. Left hip surgery. 5. Hypertension. 6. Chronic pain. 7. Chronic obstructive pulmonary disease. 8. Abnormal gait for many years, using a cane to walk. SOCIAL HISTORY: She is single. She is smoker, but she is not alcohol drinker. 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 HOME MEDICATIONS: Include fentanyl, hydrocodone, Lyrica, trazodone, Advair, Flonase, lisinopril 10 mg a day, Carafate. ALLERGIES: ASPIRIN, PENTAZOCINE, AND OXYCODONE. FAMILY HISTORY: Father and mother of myocardial infarction in late 70s. One brother with coronary artery disease. PHYSICAL EXAMINATION: VITAL SIGNS: Height of 5 feet 7 inches, weight of 188 pounds, blood pressure 130/60, heart rate of 60, respiratory rate of 18. HEENT: Pupils are reactive. NECK: No elevation of jugular venous pulsation. No bruit. CHEST: Clear to auscultation and percussion. HEART: PMI in 5th left intercostal space. Normal first and second heart sounds. ABDOMEN: Soft with good bowel sounds. Scar of previous hysterectomy is noted. Scar of laparoscopic cholecystectomy is noted. EXTREMITIES: Lower extremities, no signs of clubbing, no edema. No signs of deep venous thrombosis. NEUROLOGIC: Awake, alert, oriented. IMPRESSION AND PLAN: 1. Abdominal pain with nausea and vomiting. 2. Diarrhea. 3. Leukocytosis. 4. Chronic pain syndrome with back problem. 5. Hypertension. 6. Chronic obstructive pulmonary disease. 7. Smoker. 8. Stress test few months back by Dr. Vidales in his office negative. From a cardiac point of view, the patient able to do more than four METS without any cardiac symptoms. She is cleared for her EGD and colonoscopy. Her risks are very low and acceptable. This is explained for her and her questions are answered. MD KRISTA Lynne/ЮЛИЯ /[id number]
--- NOTE | 2020-04-11 12:57 | NUR ---
Discontinuing PT services since patient is Mod I in functional mobility. Thank you Addendum: 04/11/20 at 1258 by Kevin may PT Amended: Links added.
--- NOTE | 2020-04-11 13:57 | Diagnostic Imaging Report ---
EXAMINATION: CHEST 2 VIEWS INDICATION: Chest and abdominal pain. COMPARISON: CT of the abdomen/pelvis on 04/08/2020. FINDINGS: TUBES and LINES: None. LUNGS: Normal lung volumes. There are prominent interstitial markings throughout both lungs. No consolidations. Left lower lobe cyst/pneumatocele is better demonstrated on comparison CT of the abdomen/pelvis. PLEURA: No pleural effusion or pneumothorax. HEART AND MEDIASTINUM: The cardiac mediastinal silhouette is within normal limits. There is atherosclerotic calcification of the thoracic aortic arch. BONES AND SOFT TISSUES: No acute osseous lesion. Soft tissues are unremarkable. UPPER ABDOMEN: No free air under the diaphragm. IMPRESSION: Prominent interstitial markings throughout both lungs which may represent airway inflammation such as bronchitis, pulmonary edema or developing multifocal pneumonia in the proper clinical context. Signed by: Tyson Brunner MD on 04/11/2020 1:54 PM
--- NOTE | 2020-04-11 15:38 | NUR ---
Nutrition Screen Note RD Recommendation for Physician: -Recommend advancing diet when medically appropriate Plan of Care: RD following, monitoring for tolerance and adequacy Nutrition reason for involvement: Nutrition Risk Trigger Primary Diagnose(s): abdominal pain, UTI PMH: hypertension, acid reflux, and chronic pain syndrome Ht: 67 in Wt:188.5 lb BMI: 29.5 kg/m2 IBW: [address] Assessment: (04/11/20) Chart reviewed. Labs and meds reviewed. Pt is a 64 year old female admitted with abdominal pain and UTI. Pt is planned to have an EGD and colonoscopy tomorrow per chart. Pt is currently tolerating the liquid diet. Pt reports a decreased appetite and intake for the past week. Pt stated she had weighed 215 lbs a week ago, but pt currently has a weight of 188.5 lbs in chart. Questionable weight change. Pt also reports diarrhea. Offered pt a nutrition supplement, but pt declined at this time. Will continue to monitor. Current Diet: full liquid Malnutrition Evaluation (04/11/20) The patient does not meet criteria for a specified degree of malnutrition at this time. Will re-evaluate at follow-up as appropriate. Diet Education Needs Assessment: Diet education not indicated. Nutrition Care Level: low Signed: Tiffani Go, RD, LD
[2020-04-11] MEDS ORDERED: PEG (High)/E-LYTE SOLN 4,000 ML BTL PO ONE (17:00)
--- NOTE | 2020-04-11 19:19 | NUR ---
COMPLETED BEDSIDE SHIFT REPORT AND ROUNDING WITH THE ONCOMING NIGHT NURSE. PATIENT IN STABLE CONDITION, NO S/S OF DISTRESS NOTED. TELEMETRY APPLIED. IV FLUIDS INFUSING, SITE ASYMPTOMATIC AND PATENT, TRANSPARENT DRESSING C/D/I. BED IN LOWEST POSITION AND LOCKED, SIDE RAILS X 2, NON SKID SOCKS APPLIED. CALL LIGHT WITHIN REACH.
[2020-04-11] MEDS: ONDANSETRON HCL INJ 2MG/ML 2ML 2 MG/ML VIAL IV PRN (19:54)
[2020-04-11] MEDS ORDERED: ZOLPIDEM TARTRATE 5 MG TAB PO ONE (20:00)
[2020-04-11] MEDS: SODIUM CHLORIDE 0.9% 1000ML 1,000 ML IV SCH ×2 (21:49→22:40)
[2020-04-11] MEDS: FENTANYL 50 MCG/HR PATCH TOP SCH (22:40)
--- NOTE | 2020-04-11 22:40 | NUR ---
FENTANYL PATCH TO LEFT BUTTOCKS REMOVED ON 04/11/20 AT 2240.
[2020-04-12] VITALS (9 sets, daily range): BP systolic 124–159; BP diastolic 57–79
[2020-04-12] MEDS ORDERED: MORPHINE SULFATE 2 MG/ML SYR 1ML IV PRN
[2020-04-12] MEDS: PIPER-TAZ 3.375 GM 50 ML IV SCH ×5 (00:13→22:54)
--- NOTE | 2020-04-12 02:13 | Progress Note ---
DATE: 04/11/2020 Medicine Progress Note SUBJECTIVE: The patient is currently doing well today. She is scheduled for the EGD and colonoscopy tomorrow. No overnight events. PHYSICAL EXAMINATION: VITAL SIGNS: Temperature is 97.9, pulse 61, respiratory rate is 18, blood pressure 127/58, pulse ox 100% on room. HEENT: Head is normocephalic and atraumatic. Eyes; pupils are equal, round, and reactive to the light bilaterally. Extraocular movements are intact bilaterally. Throat, no evidence of any erythema or exudate in the posterior pharynx. Has poor dentition. NECK: Supple. Good range of motion. PULMONARY: Clear to auscultation bilaterally. No wheezing, rales, or rhonchi. No crackles appreciated. CARDIOVASCULAR: Positive S1, S2. No murmurs, rubs, or gallops appreciated. ABDOMEN: Soft, nondistended, and nontender to palpation. Bowel sounds present. MUSCULOSKELETAL: Strength is 5/5 throughout. No evidence of muscle deficits on examination. SKIN: Intact. Warm to touch. Good cap refill. LABORATORY DATA: Show white count 9.5, hemoglobin , hematocrit 32.9, platelets of 202. Chemistry; sodium 138, potassium 4.4, chloride 112, bicarb 20, anion gap of 10, BUN 5, creatinine 0.74, calcium 7.5. Coronavirus negative. C diff negative. IMAGING STUDIES: Chest x-ray shows pulmonary interstitial markings throughout both lungs likely representing airway inflammation such as rhonchi and pulmonary edema developing multifocal pneumonia, on appropriate clinical setting. IMPRESSION: 1. Abdominal pain with nausea vomiting with underlying diarrhea. 2. Chronic pain syndrome. 3. History of back pain, also history of back surgery on chronic opioids. PLAN: At this time, stool cultures have been negative. She is scheduled for EGD and colonoscopy tomorrow by GI. She has a bowel prep at the current moment. Plan is to remove fentanyl patch by midnight to avoid too much sedation with anesthesia. She will continue with IV pain medications throughout the evening time, and tomorrow we will have her underlying procedures. I discussed this with the patient and nursing staff and they verbalized understanding. Cardiology evaluated the patient and cleared the patient for the procedure for tomorrow. Get morning labs. MD [facility] Tran/ЮЛИЯ /[id number]
--- NOTE | 2020-04-12 07:00 | NUR ---
BEDSIDE SHIFT REPORT RECEIVED FROM THE ENVIRONMENTAL WEB CRAWLER RN. EDUCATED PT ABOUT FALL PRECAUTIONS. PT VERBALIZED UNDERSTANDING. CALL LIGHT WITH IN EASY REACH. INSTRUCTED PT TO USE CALL LIGHT FOR ALL THE NEEDS. BED IS LOW AND LOCKED. SIDE RAILS X2. BED ALARM IS ON. PT DENIES NEEDS AT THIS TIME.
[2020-04-12 07:16] LABS: BASOPHILS % 0.6 % (0.0-1.0); EOSINOPHILS # (AUTO) 0.1 (0.0-0.4); EOSINOPHILS % 1.7 % (0.0-6.0); HEMATOCRIT 33.4 % (34.2-44.1); HEMOGLOBIN 10.9 g/dL (12.0-16.0); LYMPHOCYTES # (AUTO) 2.3 (1.0-3.2); LYMPHOCYTES % 35.3 % (18.0-39.1); MEAN CORPUSCULAR HGB CONC 32.6 g/dL (31-35); MEAN CORPUSCULAR VOLUME 85.9 fL (81-99); MONOCYTES # (AUTO) 0.7 (0.2-0.8); MONOCYTES % 10.3 % (4.4-11.3); NEUTROPHILS # (AUTO) 3.2 (2.1-6.9); NEUTROPHILS % 49.1 % (38.7-80.0); PLATELET COUNT 223 x10e3/uL (140-360); RED BLOOD COUNT 3.89 x10e6/uL (3.6-5.1); RED CELL DISTRIBUTION WIDTH 13.6 % (11.7-14.4)
[2020-04-12] MEDS: PANTOPRAZOLE SOD 40 MG TABEC PO SCH ×2 (07:30→16:34)
[2020-04-12] MEDS: SUCRALFATE 1 GM/10 ML SUSP NG SCH ×3 (07:30→16:34)
[2020-04-12 07:49] LABS: ALANINE AMINOTRANSFERASE 9 IU/L (0-55); ALBUMIN 2.9 g/dL (3.5-5.0); ALBUMIN/GLOBULIN RATIO 1.2 (0.8-2.0); ALKALINE PHOSPHATASE 50 IU/L (40-150); BLOOD UREA NITROGEN < 5 mg/dL (7-26); CALCIUM 7.5 mg/dL (8.4-10.2); CARBON DIOXIDE 20 mmol/L (22-29); CHLORIDE 109 mmol/L (98-107); CHOL/HDL RATIO 3.3 (3.0-3.6); CHOLESTEROL 102 MD/DL (0-199); EST GLOMERULAR FILTRATION RATE > 60 ML/MIN (60-); GLUCOSE 78 mg/dL (74-118); HDL CHOLESTEROL 31 MG/DL (40-60); LDL CHOLESTEROL 49 MG/DL (60-130); SODIUM 138 mmol/L (136-145); TRIGLYCERIDES 112 MG/DL (0-149)
[2020-04-12 07:50] LABS: BUN/CREATININE RATIO 7 (6-25)
--- NOTE | 2020-04-12 08:00 | NUR ---
PAGED DR. DAILEY OFFICE REGARDING COLONOSCOPY. NO NPO ORDER YET.
[2020-04-12 08:10] LABS: THYROID STIMULATING HORMONE 0.893 uIU/mL (0.350-4.940)
--- NOTE | 2020-04-12 11:53 | NUR ---
PT IS DEMANDING MORPHINE SULPHATE BUT HR IS ON 48. PAGED DR. LARA AND REPORTED THE SAME. OD NOT ADMINISTER MORPHINE PER DR. LARA. INFORMED THE SAME TO THE PT.
--- NOTE | 2020-04-12 11:55 | NUR ---
PT HR 48 SINUS SOLEDAD PER TELE INFORMED DR. CAMPOS.
[2020-04-12] MEDS: SODIUM CHLORIDE 0.9% 1000ML 1,000 ML IV SCH (11:59)
--- NOTE | 2020-04-12 12:10 | NUR ---
PT OFF UNIT FOR PROCEDURE IN SAFE CONDITION.
--- NOTE | 2020-04-12 14:00 | NUR ---
PT BACK TO THE UNIT. DENIES NEEDS AT THIS TIME.
[2020-04-12] MEDS: PREGABALIN 50 MG CAP PO SCH (14:16)
[2020-04-12] MEDS: LISINOPRIL 10 MG TAB PO SCH (14:16)
[2020-04-12] MEDS: HYDROCODONE/APAP 10MG-325MG TAB PO PRN ×2 (14:46→20:55)
[2020-04-12] MEDS ORDERED: FENTANYL 50 MCG/HR PATCH TOP SCH (16:15)
[2020-04-12] MEDS ORDERED: LIDOCAINE HCL 2% LOCAL INJ 5 ML SDV VIAL INJ ONE (18:30)
[2020-04-12] MEDS ORDERED: PROPOFOL IV EMULSION 10 MG/ML 20 ML VIAL ONE (18:30)
[2020-04-12] MEDS ORDERED: FENTANYL CITRATE/PF 100MCG/2 ML INJ ONE (18:34)
[2020-04-12] MEDS ORDERED: MIDAZOLAM HCL 2 MG/2 ML VIAL ONE (18:34)
--- NOTE | 2020-04-12 19:19 | NUR ---
BEDSIDE SHIFT REPORT GIVEN TO THE AGRICULTURAL CHEMICALS INSPECTOR RN. PT DENIED FURTHER NEEDS.
--- NOTE | 2020-04-12 19:25 | NUR ---
report given to pm nurse.
[2020-04-13] VITALS (8 sets, daily range): BP systolic 124–142; BP diastolic 60–76
[2020-04-13] MEDS: HYDROCODONE/APAP 10MG-325MG TAB PO PRN ×4 (02:50→21:40)
--- NOTE | 2020-04-13 02:57 | Progress Note ---
DATE: 04/12/2020 Medicine Progress Note SUBJECTIVE: The patient doing well, underwent colonoscopy, found to have ischemic colitis in the small segment of the sigmoid and also found to have some duodenal ulcers. Plan of care discussed with the patient at bedside. PHYSICAL EXAMINATION: VITAL SIGNS: Temperature is 98.4, pulse is 44, respiratory rate is 18, blood pressure 126/66, pulse ox is 99% on room air. GENERAL: Not in acute distress. Alert and oriented x3. Cooperative on examination. PULMONARY: Clear to auscultation bilaterally. No wheezing, no rales, no rhonchi, no crackles appreciated. CARDIOVASCULAR: Positive S1 and S2. No murmurs, rubs, or gallops appreciated. ABDOMEN: Soft, nondistended, and nontender to palpation. Bowel sounds present. MUSCULOSKELETAL: Strength is 5/5 throughout. No evidence of any muscle deficits on examination. LABORATORY FINDINGS: Show white count 6.4, hemoglobin 10.9, hematocrit 33, platelets of 223. Sodium 138, potassium 4.0, chloride 109, bicarb 20, anion gap of 13, BUN , calcium 7.5. LFTs within normal range. Coronavirus not detected. C difficile toxin not detected. IMPRESSION: 1. Abdominal pain with nausea/vomiting/underlying diarrhea. 2. Chronic pain syndrome. 3. History of pain in the back and back surgery with chronic opioids. PLAN: At this time, the patient underwent EGD, found to have duodenal ulcers leading to underlying decreased oral intake. Get morning labs. Monitor very closely. Discussed plan of care with the patient at bedside. According to the GI doctor, a colonoscopy shows evidence of ischemic colitis, but very mild and should resolve on its own. In terms of all the other findings, the patient is stable. MD [facility] Tran/ЮЛИЯ /[id number]
[2020-04-13] MEDS: PIPER-TAZ 3.375 GM 50 ML IV SCH ×4 (05:30→23:53)
[2020-04-13 06:25] LABS: BASOPHILS % 0.5 % (0.0-1.0); EOSINOPHILS # (AUTO) 0.1 (0.0-0.4); EOSINOPHILS % 1.4 % (0.0-6.0); HEMATOCRIT 35.1 % (34.2-44.1); HEMOGLOBIN 11.3 g/dL (12.0-16.0); LYMPHOCYTES # (AUTO) 2.2 (1.0-3.2); LYMPHOCYTES % 33.7 % (18.0-39.1); MEAN CORPUSCULAR HEMOGLOBIN 27.7 pg (28-32); MEAN CORPUSCULAR HGB CONC 32.2 g/dL (31-35); MONOCYTES # (AUTO) 0.6 (0.2-0.8); MONOCYTES % 9.5 % (4.4-11.3); NEUTROPHILS # (AUTO) 3.5 (2.1-6.9); NEUTROPHILS % 53.1 % (38.7-80.0); PLATELET COUNT 205 x10e3/uL (140-360); RED BLOOD COUNT 4.08 x10e6/uL (3.6-5.1); RED CELL DISTRIBUTION WIDTH 13.7 % (11.7-14.4)
--- NOTE | 2020-04-13 07:20 | NUR ---
REPORT GIVEN TO DAYSHIFT NURSE. ALERT AND RESTING IN BED. NO SIGNS IV INFILTRATION. BED LOCKED AND IN LOW POSITION. CALL LIGHT WITHIN REACH. BED ALARM ACTIVATED.
[2020-04-13] MEDS: PANTOPRAZOLE SOD 40 MG TABEC PO SCH ×2 (07:30→16:30)
[2020-04-13] MEDS: SUCRALFATE 1 GM/10 ML SUSP NG SCH ×3 (07:30→16:30)
--- NOTE | 2020-04-13 07:35 | NUR ---
PATIENT IN BED WATCHING TV, NO DISTRESS NOTED. DENIED PAIN AT THIS TIME. BED IN LOWER POSITION, CALL LIGHT AT REACH.
[2020-04-13] MEDS: LISINOPRIL 10 MG TAB PO SCH (09:00)
[2020-04-13] MEDS: PREGABALIN 50 MG CAP PO SCH (09:00)
--- NOTE | 2020-04-13 12:02 | NUR ---
PATIENT SITTING UP IN BED EATING LUNCH, NO COMPLAIN VOICED. BED IN LOWER POSITION, CALL LIGHT AT REACH.
--- NOTE | 2020-04-13 15:50 | NUR ---
PATIENT C/O PAIN AND WAS MEDICATED ORDERED. WILL CLOSELY MONITOR.
[2020-04-13] MEDS ORDERED: ZOLPIDEM TARTRATE 5 MG TAB PO PRN (16:30)
--- NOTE | 2020-04-13 20:00 | NUR ---
INITIAL ASSESSMENT COMPLETE, CALL LIGHT IN REACH, PT ABLE TO REPOSITION IN BED, TELE ON PT, IV INTACT, VS WNL, NO DISTRESS NOTED
[2020-04-14] VITALS: BP 133/67
[2020-04-14 04:00] VITALS: BP 145/67
[2020-04-14] MEDS: HYDROCODONE/APAP 10MG-325MG TAB PO PRN ×3 (04:11→16:30)
--- NOTE | 2020-04-14 04:14 | Progress Note ---
DATE: 04/13/2020 Medicine Progress Note SUBJECTIVE: The patient doing well today with no complaints. In fact I offered her to be discharged, she refuses to go home today. She is actually doing very well. Tolerating diet. Vital signs afebrile, normotensive, respiratory rate is good. LABORATORY DATA: Lab findings show white count was 6.6, hemoglobin 11.3, hematocrit 35, platelets of 205. Chemistries reviewed, stable. C. diff negative. Coronavirus negative. MICROBIOLOGY: None. IMAGING STUDIES: Nothing new. PHYSICAL EXAMINATION: GENERAL: Not in acute distress. Alert and oriented x3. PULMONARY: Clear to auscultation bilaterally. No wheezing, no rales, no rhonchi, no crackles appreciated. CARDIOVASCULAR: Positive S1 and S2. No murmurs, rubs, or gallops appreciated. ABDOMEN: Soft, nondistended, and nontender to palpation. Bowel sounds present. MUSCULOSKELETAL: Strength is 5/5 throughout. No evidence of any muscle deficits on examination. No weakness appreciated. NEUROLOGIC: Cranial nerves 2 through 12 are grossly intact. No evidence of any neurological deficits on exam. SKIN: Intact. Warm to touch. Good cap refill. PSYCHIATRIC: Normal affect and mood. IMPRESSION: 1. Abdominal pain with nausea, vomiting, underlying diarrhea -- resolved. 2. Chronic pain syndrome. 3. History of pain in the back, on chronic opioids. 4. Ischemic colitis. 5. Duodenal ulcers. PLAN: At this time, continue with Protonix and Carafate. Labs are stable. We will get repeat labs in the morning. She does have underlying ischemic colitis, but no further workup needed according to GI. We will monitor closely. Continue with antibiotics and she will follow up in the office. The patient was to be discharged but refused to leave today. We will keep her an additional day to make sure she is able to get a ride for discharge. MD [facility] Tran/ЮЛИЯ /[id number]
[2020-04-14] MEDS: PIPER-TAZ 3.375 GM 50 ML IV SCH ×2 (06:00→12:21)
--- NOTE | 2020-04-14 06:21 | NUR ---
PT AWAKE, CALL LIGHT IN REACH, MEDICATIONS GIVEN, NO DISTRESS NOTED
[2020-04-14 07:14] LABS: ANION GAP 13.4 mmol/L (8-16); BLOOD UREA NITROGEN < 5 mg/dL (7-26); CALCIUM 7.9 mg/dL (8.4-10.2); CARBON DIOXIDE 22 mmol/L (22-29); CHLORIDE 107 mmol/L (98-107); CREATININE, SERUM 0.73 mg/dL (0.57-1.11); EST GLOMERULAR FILTRATION RATE > 60 ML/MIN (60-); GLUCOSE 87 mg/dL (74-118); POTASSIUM 4.4 mmol/L (3.5-5.1); SODIUM 138 mmol/L (136-145)
--- NOTE | 2020-04-14 07:14 | NUR ---
PATIENT AMBULATING IN ROOM WITH HER CANE, NO COMPLAIN VOICED. CALL LIGHT AT EASY REACH.
[2020-04-14 07:16] LABS: BUN/CREATININE RATIO 7 (6-25)
[2020-04-14] MEDS: PANTOPRAZOLE SOD 40 MG TABEC PO SCH ×2 (07:30→16:46)
[2020-04-14] MEDS: SUCRALFATE 1 GM/10 ML SUSP NG SCH ×3 (07:30→16:46)
[2020-04-14 08:00] VITALS: BP 124/72
[2020-04-14] MEDS: PREGABALIN 50 MG CAP PO SCH (09:23)
[2020-04-14] MEDS: LISINOPRIL 10 MG TAB PO SCH (09:23)
--- NOTE | 2020-04-14 11:03 | NUR ---
PATIENT C/O PAIN AND WAS MEDICATED ORDERED. NO MORE C/O PAIN. SITTING AT BED SIDE READING HER BOOK. CALL LIGHT VAT REACH.
[2020-04-14 12:00] VITALS: BP 121/56
[2020-04-14] MEDS ORDERED: ONDANSETRON HCL 4 MG ORAL DISINTEGRATING TAB PO PRN (15:30)
--- NOTE | 2020-04-14 15:31 | NUR ---
PATIENT IN BED RESTING WITH EYES CLOSED, NO DISTRESS NOTED. CALL LIGHT AT REACH.
[2020-04-14 16:00] VITALS: BP 119/60
--- NOTE | 2020-04-14 17:15 | NUR ---
FENTANYL PATCH REMOVED ORDERED. PATIENT IN BED TALKING ON THE PHONE, CALL LIGHT AT REACH.
[2020-04-14] MEDS ORDERED: CIPRO500 MG PO (17:35)
[2020-04-14] MEDS ORDERED: FLAGYL250 MG PO (17:36)
[2020-04-14] MEDS ORDERED: PANTOPRAZOLE SO40 MG PO (17:37)
[2020-04-14] MEDS ORDERED: CARAFATE1 GM/10 ML PO (17:38)
--- NOTE | 2020-04-14 18:25 | NUR ---
PATIENT DISCHARGED HOME. DISCHARGE INSTRUCTIONS, PRESCRIPTIONS, AND FOLLOW UP GIVEN TO PATIENT, SHE VERBALIZED UNDERSTANDING. IV TO RIGHT HAND REMOVED WITH TIP INTACT. ALL PERSONAL ITEMS TAKEN WITH PATIENT. SHE LEFT UNIT PER WHEEL CHAIR TO FRONT LOBBY IN STABLE CONDITION.
--- NOTE | 2020-04-15 06:09 | Discharge Summary ---
ADDENDUM: HOSPITAL COURSE: This is a 64-year-old female, who came into the emergency room with complaints of underlying abdominal pain, nausea, vomiting, prompting further evaluation and management. GI was consulted, in which the patient underwent bowel prep and underwent EGD and colonoscopy. EGD report shows some duodenal ulcers and the colonoscopy shows some underlying ischemic colitis in the small area. I spoke with GI personally, who recommends continue with Protonix as well as Carafate by mouth. As for as underlying ischemic colitis, he reports to me that it is a small area. No further workup needed. She will be monitored very closely on IV antibiotic therapy. She worked really well while here in the hospital stay, worked with PT and OT. Her appetite improved throughout the hospital course. She was stable for discharge to home. On the day of discharge, vital signs were stable, labs reviewed and stable. The patient was seen and evaluated and examined thoroughly on the day of discharge with no other complaints. The patient verbalized understanding and agrees to plan of care to follow up accordingly as an outpatient with primary care physician in 1 week and GI in 1 to 2 weeks' time for final pathology results. The patient verbalized understanding and agrees to plan of care. MD [facility] Tran/ЮЛИЯ /[id number]
--- NOTE | 2020-04-15 06:09 | Discharge Summary ---
FINAL DISCHARGE DIAGNOSES: 1. Abdominal pain with nausea and vomiting and underlying diarrhea secondary to underlying ischemic colitis. 2. Chronic pain syndrome. 3. History of pain in the back. On chronic opioids. 4. Duodenal ulcers. CONSULTANTS: GI, Cardiology, and GI. PHYSICAL EXAMINATION: VITAL SIGNS: Temperature 98.3, pulse 51, respiratory rate 16, blood pressure is 119/60, pulse ox 99% on room air. GENERAL: In no acute distress. Alert and oriented x3. Cooperative on examination. HEENT: Head is normocephalic and atraumatic. Eyes; pupils are equal, round, and reactive to light bilaterally. Extraocular movements are intact bilaterally. Throat, no evidence of any erythema or exudates in the posterior pharynx. Has poor dentition. NECK: Supple. Good range of motion throughout. PULMONARY: Clear to auscultation bilaterally. No wheezing, rales, or rhonchi. No crackles appreciated. CARDIOVASCULAR: Positive S1 and S2. No murmurs, rubs, or gallops appreciated. ABDOMEN: Soft, nondistended, and nontender to palpation. Bowel sounds present. MUSCULOSKELETAL: Strength is 5/5 throughout. NEUROLOGICAL: Intact. LABORATORY FINDINGS: Show white count6.6, hemoglobin 11.3, hematocrit 35, platelets of 205. Sodium 138, potassium is 4.4, chloride 107, bicarb 22, anion gap of 13, BUN is 5 and creatinine 0.73, calcium 7.9. Rest of the LFTs within normal range. Urinalysis noted, urine drug screen positive for opioids only. Body fluid negative for blood occult. HOSPITAL COURSE: This is a 64-year-old female, came into the ED with complaints of abdominal pain, nausea, vomiting, and diarrhea, prompting GI consultation. While here, GI consult was consulted and was recommending oral EGD as well as any form of transportation for imaging studies to occur. The patient underwent status post EGD that showed some gastritis, but the colonoscopy was consistent with a small area of ischemic colitis. At this time, the patient will continue with same plan of care. She was advanced from clear liquids to solids, which she tolerated very well. She was recommended to follow up the diet very closely. She will avoid if any other issues. We will continue with antibiotics on discharge for duodenal ulcers. DC antihypertensive medications. Monitor very closely with the rest of the consultants. MD [facility] Tran/ЮЛИЯ /[id number]
== END 2020-04-14 18:20 | disposition home or self-care (01) | DRG 394 ==
LOC: ER 19:49 → ERHOLD 04-09 00:04 → MED/SURG3 04-09 00:53
PROVIDERS: ADMIT Internal Medicine; ATTEND Internal Medicine
PROC: 0DBL8ZX Excision of Transverse Colon, Via Natural or Artificial Opening Endoscopic, Diagnostic (ICD-10-PCS; 2020-04-12)
PROC: 0DB38ZX Excision of Lower Esophagus, Via Natural or Artificial Opening Endoscopic, Diagnostic (ICD-10-PCS; principal; 2020-04-12 14:00)
PROC: 0DB78ZX Excision of Stomach, Pylorus, Via Natural or Artificial Opening Endoscopic, Diagnostic (ICD-10-PCS; 2020-04-12 14:00)
PROC: 0DBK8ZX Excision of Ascending Colon, Via Natural or Artificial Opening Endoscopic, Diagnostic (ICD-10-PCS; 2020-04-12 14:00)
DX: K55.9 Vascular disorder of intestine, unspecified (principal); N39.0 Urinary tract infection, site not specified; A04.9 Bacterial intestinal infection, unspecified; K26.9 Duodenal ulcer, unspecified as acute or chronic, without hemorrhage or perforation; Z11.59 Encounter for screening for other viral diseases; G89.4 Chronic pain syndrome; Z79.891 Long term (current) use of opiate analgesic; K29.70 Gastritis, unspecified, without bleeding; J44.9 Chronic obstructive pulmonary disease, unspecified; Z74.09 Other reduced mobility; R00.1 Bradycardia, unspecified
CPT/HCPCS: 36415; 43239; 45380; 45385; 71046; 74174; 80048; 80053; 80061; 80307; 81001; 82270; 82550; 82553; 84443; 84484; 85025; 87493; 88305; 88312; 93005; 93306; 97139; 99284; J2001; J2250; J2270; J2405; J2543; J3010; J7030; Q9967; U0002

== ENCOUNTER 2020-12-09 18:17 | Emergency (ER) | payer OTHER, MEDICARE ==
[~2020-12-09] VITALS: Ht 170.2 cm; Wt 99.8 kg
[~2020-12-09 18:17] MED LIST changes: +ADVAIR HFA 115-12 GM; +CIPRO500 MG PO; +FLAGYL250 MG PO; +PANTOPRAZOLE SO40 MG PO; +TIZANIDINE HCL4 MG PO
[2020-12-09] MEDS ORDERED: LIDOCAINE 4% PATCH TP ONE (19:00)
[2020-12-09] MEDS ORDERED: HYDROCODONE/APAP 10MG-325MG TAB PO ONE (19:00)
[2020-12-09] MEDS ORDERED: LIDOPATCH1 EACH TOP (21:04)
[2020-12-09] MEDS ORDERED: NAPROXEN250 MG PO (21:04)
[2020-12-09] MEDS ORDERED: HYDROCODON-ACE1 EAC9 PO (21:55)
== END 2020-12-09 21:50 | disposition home or self-care (01) ==
LOC: ER 18:22
DX: R07.89 Other chest pain (principal); S22.31XA Fracture of one rib, right side, initial encounter for closed fracture; W01.0XXA Fall on same level from slipping, tripping and stumbling without subsequent striking against object, initial encounter; Y93.01 Activity, walking, marching and hiking; Y92.002 Bathroom of unspecified non-institutional (private) residence as the place of occurrence of the external cause; I10 Essential (primary) hypertension; E78.5 Hyperlipidemia, unspecified; J44.9 Chronic obstructive pulmonary disease, unspecified; F41.9 Anxiety disorder, unspecified; M54.9 Dorsalgia, unspecified; G89.29 Other chronic pain
CPT/HCPCS: 71101; 99283

== ENCOUNTER 2020-12-13 17:27 | Inpatient (IN) | payer MEDICARE ==
[~2020-12-13] VITALS: Ht 170.2 cm; Wt 97.1 kg
[~2020-12-13 17:27] MED LIST changes: +HYDROCODON-ACE1 EAC9 PO; +LIDOPATCH1 EACH TOP; +NAPROXEN250 MG PO
[2020-12-13] MEDS ORDERED: ONDANSETRON HCL INJ 2MG/ML 2ML 2 MG/ML VIAL IV STA (17:45)
[2020-12-13] MEDS ORDERED: PANTOPRAZOLE 40 MG 10ML VIAL IV STA (17:45)
[2020-12-13 17:57] LABS: BASOPHILS # (AUTO) 0.1 (0.0-0.1); BASOPHILS % 0.3 % (0.0-1.0); HEMATOCRIT 41.2 % (34.2-44.1); HEMOGLOBIN 14.1 g/dL (12.0-16.0); LYMPHOCYTES # (AUTO) 2.2 (1.0-3.2); LYMPHOCYTES % 7.4 % (18.0-39.1); MEAN CORPUSCULAR HEMOGLOBIN 28.6 pg (28-32); MEAN CORPUSCULAR HGB CONC 34.2 g/dL (31-35); MEAN CORPUSCULAR VOLUME 83.6 fL (81-99); MONOCYTES % 6.8 % (4.4-11.3); NEUTROPHILS # (AUTO) 24.8 (2.1-6.9); NEUTROPHILS % 84.3 % (38.7-80.0); PLATELET COUNT 283 x10e3/uL (140-360); RED BLOOD COUNT 4.93 x10e6/uL (3.6-5.1); RED CELL DISTRIBUTION WIDTH 12.8 % (11.7-14.4)
[2020-12-13 18:13] LABS: PARTIAL THROMBOPLASTIN TIME 30.5 seconds (23.8-35.5); PROTHROMBIN TIME 13.8 seconds (11.9-14.5)
[2020-12-13 18:16] LABS: ALANINE AMINOTRANSFERASE 10 IU/L (0-55); ALBUMIN 3.6 g/dL (3.5-5.0); ALBUMIN/GLOBULIN RATIO 0.8 (0.8-2.0); ALKALINE PHOSPHATASE 102 IU/L (40-150); ANION GAP 15.3 mmol/L (8-16); BLOOD UREA NITROGEN 16 mg/dL (7-26); BUN/CREATININE RATIO 19 (6-25); CARBON DIOXIDE 22 mmol/L (22-29); CHLORIDE 101 mmol/L (98-107); CREATININE, SERUM 0.83 mg/dL (0.57-1.11); EST GLOMERULAR FILTRATION RATE > 60 ML/MIN (60-); GLUCOSE 120 mg/dL (74-118); POTASSIUM 4.3 mmol/L (3.5-5.1); SODIUM 134 mmol/L (136-145)
[2020-12-13] MEDS: SODIUM CHLORIDE 0.9% 1000ML 1,000 ML IV SCH (18:17)
[2020-12-13 18:18] LABS: CREATINE KINASE MB 0.3 ng/mL (0-5.0)
[2020-12-13 18:26] LABS: CALCIUM 9.3 mg/dL (8.4-10.2)
[2020-12-13] MEDS ORDERED: SODIUM CHLORIDE 0.9% 50ML 50 ML ONE (18:42)
[2020-12-13] MEDS ORDERED: IOPAMIDOL 370 MG/ML 200 ML INFUS..BTL INJ ONE (18:43)
[2020-12-13] MEDS ORDERED: PIPERACILLIN/TAZOBAC 3.375 GM in SODIUM CHLORIDE 0.9% 50ML 50 ML IV ONE (18:45)
[2020-12-13] MEDS ORDERED: PIPER-TAZ 3.375 GM 50 ML IV ONE (19:00)
[2020-12-13 19:51] LABS: CLARITY,URINE SL CLOUDY (CLEAR); COLOR,URINE YELLOW (YELLOW)
[2020-12-13 19:52] LABS: KETONES,URINE NEGATIVE (NEGATIVE); LEUKOCYTE ESTERASE ,URINE NEGATIVE (NEGATIVE); NITRITE,URINE NEGATIVE (NEGATIVE); PROTEIN,URINE DIPSTICK NEGATIVE (NEGATIVE); URINE UROBILINOGEN 0.2 mg/dL (0.2 - 1)
[2020-12-13 19:59] LABS: BAND NEUTROPHILS % (MANUAL) 1 %; LYMPHOCYTES % (MANUAL) 18 % (19-48); MONOCYTES % (MANUAL) 6 % (3.4-9.0); NEUTROPHILS % (MANUAL) 75 % (40-74)
[2020-12-13 20:00] LABS: PLATELET ESTIMATE ADEQUATE
[2020-12-13 20:01] LABS: PLATELET MORPHOLOGY COMMENT NORMAL; RBC MORPHOLOGY COMMENT NORMAL
[2020-12-13] MEDS ORDERED: ONDANSETRON HCL INJ 2MG/ML 2ML 2 MG/ML VIAL IV PRN (20:15)
[2020-12-13] MEDS ORDERED: ACETAMINOPHEN 325 MG TAB PO PRN (20:15)
[2020-12-13 20:20] LABS: BACTERIA,URINE RARE /HPF; EPITHELIAL CELLS,URINE FEW /LPF; RBC,URINE 0-5 /HPF (0-5); WBC,URINE (MAN) 0-5 /HPF (0-5)
[2020-12-13 22:11] VITALS: BP 154/81
[2020-12-13] MEDS: MORPHINE SULFATE INJ 4 MG/ML INJ 1ML IV PRN (22:29)
[2020-12-13] MEDS: ONDANSETRON HCL INJ 2MG/ML 2ML 2 MG/ML VIAL IV PRN (22:40)
[2020-12-14] VITALS (10 sets, daily range): BP systolic 104–154; BP diastolic 50–81
[2020-12-14] MEDS ORDERED: DOCUSATE SODIUM 100 MG CAP PO PRN (00:45)
[2020-12-14] MEDS ORDERED: ACETAMINOPHEN 325 MG TAB PO PRN (00:45)
[2020-12-14] MEDS ORDERED: SIMETHICONE 80 MG CHEW PO PRN (00:45)
[2020-12-14] MEDS ORDERED: POTASSIUM CHLORIDE 20 MEQ TAB CR PO PRN (00:45)
[2020-12-14] MEDS ORDERED: BENZONATATE 100 MG CAP PO PRN (00:45)
[2020-12-14] MEDS ORDERED: HYDRALAZINE HCL 20 MG/ML VIAL IV PRN (00:45)
[2020-12-14] MEDS ORDERED: ALBUTEROL/IPRATROPIUM 3 ML NEB NEB PRN (00:45)
[2020-12-14] MEDS ORDERED: POLYETHYLENE GLYCOL 3350 17 GM PACK PO PRN (00:45)
[2020-12-14] MEDS ORDERED: DEXTROSE 50% SYRINGE 50 ML IV PRN (00:45)
[2020-12-14] MEDS ORDERED: MELATONIN 5 MG TABLET PO PRN (00:45)
[2020-12-14] MEDS ORDERED: LIDOCAINE 4% PATCH TP PRN (00:45)
[2020-12-14] MEDS ORDERED: PIPERACILLIN/TAZOBAC 3.375 GM in SODIUM CHLORIDE 0.9% 50ML 50 ML IV SCH (02:00)
[2020-12-14] MEDS: PANTOPRAZOLE 40 MG 10ML VIAL IV SCH ×3 (02:45→12:00)
[2020-12-14] MEDS: ONDANSETRON HCL INJ 2MG/ML 2ML 2 MG/ML VIAL IV PRN ×3 (02:58→19:50)
[2020-12-14] MEDS: MORPHINE SULFATE INJ 4 MG/ML INJ 1ML IV PRN ×3 (02:58→11:20)
[2020-12-14] MEDS: PIPERACILLIN/TAZOBAC 3.375 GM in SODIUM CHLORIDE 0.9% 50ML 50 ML IV SCH ×4 (05:00→23:49)
[2020-12-14 05:22] LABS: BASOPHILS # (AUTO) 0.1 (0.0-0.1); BASOPHILS % 0.3 % (0.0-1.0); EOSINOPHILS % 0.1 % (0.0-6.0); HEMATOCRIT 36.5 % (34.2-44.1); HEMOGLOBIN 12.8 g/dL (12.0-16.0); LYMPHOCYTES # (AUTO) 2.3 (1.0-3.2); LYMPHOCYTES % 9.9 % (18.0-39.1); MEAN CORPUSCULAR HEMOGLOBIN 29.2 pg (28-32); MEAN CORPUSCULAR HGB CONC 35.1 g/dL (31-35); MEAN CORPUSCULAR VOLUME 83.1 fL (81-99); MONOCYTES # (AUTO) 1.5 (0.2-0.8); MONOCYTES % 6.6 % (4.4-11.3); NEUTROPHILS % 82.2 % (38.7-80.0); PLATELET COUNT 243 x10e3/uL (140-360); RED BLOOD COUNT 4.39 x10e6/uL (3.6-5.1); RED CELL DISTRIBUTION WIDTH 12.6 % (11.7-14.4)
[2020-12-14] MEDS: SODIUM CHLORIDE 0.9% 1000ML 1,000 ML IV SCH ×4 (05:39→23:45)
[2020-12-14] MEDS: METRONIDAZOLE 500MG/NS 100ML 100 ML IV SCH ×2 (05:40)
[2020-12-14 05:46] LABS: ALANINE AMINOTRANSFERASE 8 IU/L (0-55); ALBUMIN 3.3 g/dL (3.5-5.0); ALKALINE PHOSPHATASE 78 IU/L (40-150); ANION GAP 11.7 mmol/L (8-16); BLOOD UREA NITROGEN 12 mg/dL (7-26); BUN/CREATININE RATIO 17 (6-25); CALCIUM 8.6 mg/dL (8.4-10.2); CARBON DIOXIDE 24 mmol/L (22-29); CHLORIDE 104 mmol/L (98-107); CREATININE, SERUM 0.72 mg/dL (0.57-1.11); EST GLOMERULAR FILTRATION RATE > 60 ML/MIN (60-); GLUCOSE 123 mg/dL (74-118); POTASSIUM 3.7 mmol/L (3.5-5.1); SODIUM 136 mmol/L (136-145)
[2020-12-14] MEDS ORDERED: PANTOPRAZOLE SOD 40 MG TABEC PO SCH ×2 (07:30→17:00)
[2020-12-14] MEDS ORDERED: TIZANIDINE HCL 4 MG TAB PO PRN (13:00)
[2020-12-14] MEDS: FENTANYL 50 MCG/HR PATCH TOP SCH (15:30)
[2020-12-14] MEDS: MORPHINE SULFATE INJ 2 MG/ML SYR IV PRN ×3 (15:50→23:50)
[2020-12-14] MEDS ORDERED: ENOXAPARIN SOD INJ 40 MG/0.4 ML SYR SC SCH (17:00)
[2020-12-14] MEDS ORDERED: TRAZODONE HCL 50 MG TAB PO PRN (21:00)
[2020-12-15] VITALS (8 sets, daily range): BP systolic 94–118; BP diastolic 48–67
[2020-12-15] MEDS: PANTOPRAZOLE 40 MG 10ML VIAL IV SCH ×2 (01:48→15:28)
[2020-12-15] MEDS: ZOLPIDEM TARTRATE 10 MG TAB PO PRN ×2 (01:48→21:50)
[2020-12-15] MEDS: MORPHINE SULFATE INJ 2 MG/ML SYR IV PRN ×5 (04:45→21:49)
[2020-12-15] MEDS: PIPERACILLIN/TAZOBAC 3.375 GM in SODIUM CHLORIDE 0.9% 50ML 50 ML IV SCH ×4 (05:32→23:15)
[2020-12-15 06:13] LABS: BASOPHILS % 0.3 % (0.0-1.0); EOSINOPHILS # (AUTO) 0.1 (0.0-0.4); EOSINOPHILS % 0.9 % (0.0-6.0); HEMOGLOBIN 10.7 g/dL (12.0-16.0); LYMPHOCYTES # (AUTO) 3.1 (1.0-3.2); LYMPHOCYTES % 26.8 % (18.0-39.1); MEAN CORPUSCULAR HEMOGLOBIN 29.2 pg (28-32); MEAN CORPUSCULAR HGB CONC 33.4 g/dL (31-35); MEAN CORPUSCULAR VOLUME 87.2 fL (81-99); MONOCYTES # (AUTO) 0.9 (0.2-0.8); MONOCYTES % 8.1 % (4.4-11.3); NEUTROPHILS # (AUTO) 7.2 (2.1-6.9); NEUTROPHILS % 63.3 % (38.7-80.0); PLATELET COUNT 208 x10e3/uL (140-360); RED BLOOD COUNT 3.67 x10e6/uL (3.6-5.1); RED CELL DISTRIBUTION WIDTH 12.9 % (11.7-14.4)
[2020-12-15 06:49] LABS: ANION GAP 10.5 mmol/L (8-16); BLOOD UREA NITROGEN 11 mg/dL (7-26); BUN/CREATININE RATIO 14 (6-25); CALCIUM 7.8 mg/dL (8.4-10.2); CARBON DIOXIDE 24 mmol/L (22-29); CHLORIDE 108 mmol/L (98-107); CREATININE, SERUM 0.76 mg/dL (0.57-1.11); EST GLOMERULAR FILTRATION RATE > 60 ML/MIN (60-); GLUCOSE 82 mg/dL (74-118); MAGNESIUM 1.9 MG/DL (1.3-2.1); PHOSPHORUS 2.4 MG/DL (2.3-4.7); POTASSIUM 3.5 mmol/L (3.5-5.1); SODIUM 139 mmol/L (136-145)
[2020-12-15] MEDS ORDERED: LISINOPRIL 10 MG TAB PO SCH (09:00)
[2020-12-15] MEDS: D5NS/KCL 20MEQ 1,000 ML IV SCH (13:39)
[2020-12-15] MEDS: ONDANSETRON HCL INJ 2MG/ML 2ML 2 MG/ML VIAL IV PRN (21:50)
[2020-12-16] VITALS (8 sets, daily range): BP systolic 98–143; BP diastolic 49–73
[2020-12-16] MEDS: D5NS/KCL 20MEQ 1,000 ML IV SCH ×2 (01:20→14:12)
[2020-12-16] MEDS: MORPHINE SULFATE INJ 2 MG/ML SYR IV PRN ×6 (01:50→23:50)
[2020-12-16] MEDS: PANTOPRAZOLE 40 MG 10ML VIAL IV SCH ×2 (02:17→14:45)
[2020-12-16] MEDS: PIPERACILLIN/TAZOBAC 3.375 GM in SODIUM CHLORIDE 0.9% 50ML 50 ML IV SCH ×4 (06:00→23:50)
[2020-12-16 06:22] LABS: BASOPHILS % 0.3 % (0.0-1.0); EOSINOPHILS # (AUTO) 0.2 (0.0-0.4); EOSINOPHILS % 2.2 % (0.0-6.0); HEMATOCRIT 31.3 % (34.2-44.1); HEMOGLOBIN 10.5 g/dL (12.0-16.0); LYMPHOCYTES # (AUTO) 2.2 (1.0-3.2); LYMPHOCYTES % 24.5 % (18.0-39.1); MEAN CORPUSCULAR HEMOGLOBIN 28.6 pg (28-32); MEAN CORPUSCULAR HGB CONC 33.5 g/dL (31-35); MEAN CORPUSCULAR VOLUME 85.3 fL (81-99); MONOCYTES # (AUTO) 0.8 (0.2-0.8); MONOCYTES % 8.9 % (4.4-11.3); NEUTROPHILS # (AUTO) 5.8 (2.1-6.9); NEUTROPHILS % 63.5 % (38.7-80.0); PLATELET COUNT 190 x10e3/uL (140-360); RED BLOOD COUNT 3.67 x10e6/uL (3.6-5.1); RED CELL DISTRIBUTION WIDTH 12.8 % (11.7-14.4)
[2020-12-16 06:58] LABS: ANION GAP 8.9 mmol/L (8-16); BLOOD UREA NITROGEN 10 mg/dL (7-26); BUN/CREATININE RATIO 14 (6-25); CALCIUM 7.9 mg/dL (8.4-10.2); CARBON DIOXIDE 23 mmol/L (22-29); CHLORIDE 109 mmol/L (98-107); CREATININE, SERUM 0.71 mg/dL (0.57-1.11); EST GLOMERULAR FILTRATION RATE > 60 ML/MIN (60-); GLUCOSE 91 mg/dL (74-118); POTASSIUM 3.9 mmol/L (3.5-5.1); SODIUM 137 mmol/L (136-145)
[2020-12-16 07:33] LABS: % IRON SATURATION 22 % (15-50); IRON 54 ug/dL (50-170); TOTAL IRON BINDING CAPACITY 251 ug/dL (261-478); TRANSFERRIN 179 mg/dL (180-382)
[2020-12-16] MEDS: ZOLPIDEM TARTRATE 10 MG TAB PO PRN (23:50)
[2020-12-17] VITALS (8 sets, daily range): BP systolic 119–152; BP diastolic 55–77
[2020-12-17] MEDS: PANTOPRAZOLE 40 MG 10ML VIAL IV SCH ×2 (02:45→14:45)
[2020-12-17] MEDS: D5NS/KCL 20MEQ 1,000 ML IV SCH ×2 (04:32→17:52)
[2020-12-17] MEDS: MORPHINE SULFATE INJ 2 MG/ML SYR IV PRN ×5 (05:16→22:04)
[2020-12-17 05:31] LABS: BASOPHILS % 0.4 % (0.0-1.0); EOSINOPHILS # (AUTO) 0.2 (0.0-0.4); EOSINOPHILS % 2.4 % (0.0-6.0); HEMATOCRIT 32.2 % (34.2-44.1); HEMOGLOBIN 11.1 g/dL (12.0-16.0); LYMPHOCYTES # (AUTO) 2.5 (1.0-3.2); LYMPHOCYTES % 24.9 % (18.0-39.1); MEAN CORPUSCULAR HEMOGLOBIN 29.1 pg (28-32); MEAN CORPUSCULAR HGB CONC 34.5 g/dL (31-35); MEAN CORPUSCULAR VOLUME 84.3 fL (81-99); MONOCYTES # (AUTO) 0.9 (0.2-0.8); MONOCYTES % 9.2 % (4.4-11.3); NEUTROPHILS # (AUTO) 6.2 (2.1-6.9); NEUTROPHILS % 62.5 % (38.7-80.0); PLATELET COUNT 228 x10e3/uL (140-360); RED BLOOD COUNT 3.82 x10e6/uL (3.6-5.1); RED CELL DISTRIBUTION WIDTH 12.7 % (11.7-14.4)
[2020-12-17 05:54] LABS: ALANINE AMINOTRANSFERASE 25 IU/L (0-55); ALBUMIN 2.9 g/dL (3.5-5.0); ALKALINE PHOSPHATASE 84 IU/L (40-150); ANION GAP 11.4 mmol/L (8-16); BLOOD UREA NITROGEN 5 mg/dL (7-26); BUN/CREATININE RATIO 7 (6-25); CALCIUM 8.4 mg/dL (8.4-10.2); CARBON DIOXIDE 24 mmol/L (22-29); CHLORIDE 109 mmol/L (98-107); EST GLOMERULAR FILTRATION RATE > 60 ML/MIN (60-); GLUCOSE 92 mg/dL (74-118); POTASSIUM 4.4 mmol/L (3.5-5.1); SODIUM 140 mmol/L (136-145)
[2020-12-17] MEDS: PIPERACILLIN/TAZOBAC 3.375 GM in SODIUM CHLORIDE 0.9% 50ML 50 ML IV SCH ×4 (06:00→23:38)
[2020-12-17] MEDS: FENTANYL 50 MCG/HR PATCH TOP SCH (11:53)
[2020-12-17] MEDS: ZOLPIDEM TARTRATE 10 MG TAB PO PRN (22:04)
[2020-12-17] MEDS ORDERED: CYANOCOBALAMIN INJ 1,000 MCG/ML VIAL IM ONE (23:45)
[2020-12-18] VITALS (8 sets, daily range): BP systolic 130–169; BP diastolic 59–78
[2020-12-18] MEDS: PANTOPRAZOLE 40 MG 10ML VIAL IV SCH ×2 (02:28→14:57)
[2020-12-18] MEDS: MORPHINE SULFATE INJ 2 MG/ML SYR IV PRN ×6 (02:28→23:39)
[2020-12-18] MEDS: D5NS/KCL 20MEQ 1,000 ML IV SCH (05:38)
[2020-12-18] MEDS: PIPERACILLIN/TAZOBAC 3.375 GM in SODIUM CHLORIDE 0.9% 50ML 50 ML IV SCH ×4 (05:40→23:22)
[2020-12-18 06:27] LABS: BASOPHILS % 0.3 % (0.0-1.0); EOSINOPHILS # (AUTO) 0.2 (0.0-0.4); EOSINOPHILS % 1.9 % (0.0-6.0); HEMATOCRIT 32.1 % (34.2-44.1); HEMOGLOBIN 10.8 g/dL (12.0-16.0); LYMPHOCYTES # (AUTO) 2.6 (1.0-3.2); MEAN CORPUSCULAR HEMOGLOBIN 28.2 pg (28-32); MEAN CORPUSCULAR HGB CONC 33.6 g/dL (31-35); MEAN CORPUSCULAR VOLUME 83.8 fL (81-99); MONOCYTES # (AUTO) 0.9 (0.2-0.8); MONOCYTES % 9.4 % (4.4-11.3); NEUTROPHILS # (AUTO) 5.6 (2.1-6.9); NEUTROPHILS % 59.8 % (38.7-80.0); PLATELET COUNT 206 x10e3/uL (140-360); RED BLOOD COUNT 3.83 x10e6/uL (3.6-5.1); RED CELL DISTRIBUTION WIDTH 12.8 % (11.7-14.4)
[2020-12-18 06:52] LABS: ALANINE AMINOTRANSFERASE 19 IU/L (0-55); ALBUMIN 2.8 g/dL (3.5-5.0); ALBUMIN/GLOBULIN RATIO 0.9 (0.8-2.0); ALKALINE PHOSPHATASE 82 IU/L (40-150); ANION GAP 14.3 mmol/L (8-16); BLOOD UREA NITROGEN < 5 mg/dL (7-26); CALCIUM 8.5 mg/dL (8.4-10.2); CARBON DIOXIDE 22 mmol/L (22-29); CHLORIDE 108 mmol/L (98-107); EST GLOMERULAR FILTRATION RATE > 60 ML/MIN (60-); GLUCOSE 95 mg/dL (74-118); POTASSIUM 4.3 mmol/L (3.5-5.1); SODIUM 140 mmol/L (136-145)
[2020-12-18 06:54] LABS: BUN/CREATININE RATIO 7 (6-25)
[2020-12-18] MEDS: CYANOCOBALAMIN INJ 1,000 MCG/ML VIAL IM SCH (11:30)
[2020-12-18] MEDS: ZOLPIDEM TARTRATE 10 MG TAB PO PRN (22:07)
[2020-12-19] VITALS: BP_SYST 119; BP_SYST 137; BP_DIAS 56; BP_DIAS 58
[2020-12-19] MEDS: PANTOPRAZOLE 40 MG 10ML VIAL IV SCH ×2 (02:22→13:03)
[2020-12-19] MEDS: MORPHINE SULFATE INJ 2 MG/ML SYR IV PRN ×4 (04:50→17:50)
[2020-12-19] MEDS: PIPERACILLIN/TAZOBAC 3.375 GM in SODIUM CHLORIDE 0.9% 50ML 50 ML IV SCH ×3 (05:01→18:00)
[2020-12-19 08:03] VITALS: BP 109/61
[2020-12-19 08:50] VITALS: BP 109/61
[2020-12-19 12:04] VITALS: BP 146/64
[2020-12-19] MEDS ORDERED: ONDANSETRON HCL 4 MG ORAL DISINTEGRATING TAB PO PRN (13:00)
[2020-12-19] MEDS: CYANOCOBALAMIN INJ 1,000 MCG/ML VIAL IM SCH (13:03)
[2020-12-19] MEDS ORDERED: SODIUM CHLORIDE 0.9% 100 ML ONE (13:38)
[2020-12-19] MEDS ORDERED: METRONIDAZOLE500 MG PO (15:33)
[2020-12-19] MEDS ORDERED: LEVOFLOXACIN250 MG PO (15:34)
[2020-12-19 16:23] VITALS: BP 159/75
== END 2020-12-19 18:25 | disposition home or self-care (01) | DRG 386 ==
LOC: ER 18:09 → ERHOLD 20:08 → MED/SURG2 21:29
PROVIDERS: ADMIT Internal Medicine; ATTEND Internal Medicine
DX: K51.518 Left sided colitis with other complication (principal); K55.9 Vascular disorder of intestine, unspecified; A09 Infectious gastroenteritis and colitis, unspecified; K57.32 Diverticulitis of large intestine without perforation or abscess without bleeding; E86.0 Dehydration; I10 Essential (primary) hypertension; J44.9 Chronic obstructive pulmonary disease, unspecified; K21.9 Gastro-esophageal reflux disease without esophagitis; E66.01 Morbid (severe) obesity due to excess calories; G89.4 Chronic pain syndrome; E78.5 Hyperlipidemia, unspecified; Z88.5 Allergy status to narcotic agent; Z88.8 Allergy status to other drugs, medicaments and biological substances; Z20.822 Contact with and (suspected) exposure to COVID-19; K29.70 Gastritis, unspecified, without bleeding; Z68.33 Body mass index [BMI] 33.0-33.9, adult
CPT/HCPCS: 36415; 74177; 80048; 80053; 81001; 82550; 82553; 82607; 82746; 83540; 83735; 84100; 84466; 84484; 85025; 85045; 85610; 85730; 86850; 86900; 87040; 87071; 87205; 93005; 96361; 96366; 97139; 99251; 99284; J1650; J2270; J2405; J2543; J3420; J7030; J7050; Q9967; U0002

== ENCOUNTER → 2021-02-01 | Outpatient (CLI) | payer MEDICARE ==
[~2021-02-01] MED LIST changes: +LEVOFLOXACIN250 MG PO; +METRONIDAZOLE500 MG PO
== END ==
LOC: MAMMO 14:39
PROVIDERS: ATTEND Internal Medicine
DX: Z12.31 Encounter for screening mammogram for malignant neoplasm of breast (principal); M85.80 Other specified disorders of bone density and structure, unspecified site
CPT/HCPCS: 77067; 77080

== ENCOUNTER → 2021-03-09 | Outpatient (CLI) | payer MEDICARE | LOC: MAMMO 07:41 | PROVIDERS: ATTEND Internal Medicine | DX: N64.89 Other specified disorders of breast (principal) | CPT/HCPCS: 71260; 77066 ==

== ENCOUNTER → 2021-03-09 | Outpatient (CLI) | payer MEDICARE ==
[~2021-03-09] MED LIST changes: +IOPAMIDOL 370 MG/ML 200 ML INFUS..BTL INJ ONE; +SODIUM CHLORIDE 0.9% 100 ML ONE
== END ==
LOC: CT 07:45
PROVIDERS: ATTEND Internal Medicine
DX: K52.9 Noninfective gastroenteritis and colitis, unspecified (principal); R11.0 Nausea; K55.069 Acute infarction of intestine, part and extent unspecified; Z72.0 Tobacco use
CPT/HCPCS: 74175; J7050; Q9967

== ENCOUNTER → 2022-05-01 | Outpatient (CLI) | payer OTHER ==
[~2022-05-01] MED LIST changes: -IOPAMIDOL 370 MG/ML 200 ML INFUS..BTL INJ ONE; -SODIUM CHLORIDE 0.9% 100 ML ONE
== END ==
LOC: CT 10:51
PROVIDERS: ATTEND Internal Medicine
DX: Z72.0 Tobacco use (principal)
CPT/HCPCS: 71250

== ENCOUNTER → 2022-05-01 | Outpatient (CLI) | payer OTHER | LOC: MRI 10:56 | PROVIDERS: ATTEND Anesthesiology | DX: M54.40 Lumbago with sciatica, unspecified side (principal) | CPT/HCPCS: 72148 ==

== ENCOUNTER → 2022-12-03 | Outpatient (CLI) | payer OTHER | LOC: RAD 07:19 | PROVIDERS: ATTEND Internal Medicine | DX: M47.812 Spondylosis without myelopathy or radiculopathy, cervical region (principal) | CPT/HCPCS: 72040 ==

== ENCOUNTER → 2023-01-24 | Outpatient (CLI) | payer OTHER | LOC: MRI 10:15 | PROVIDERS: ATTEND Pediatrics | DX: R51.9 Headache, unspecified (principal) | CPT/HCPCS: 70551 ==